=== PATIENT | female | born 1945 | race Caucasian/White ===

== ENCOUNTER 2017-08-27 10:05 | Emergency (ER) | payer MEDICARE, BC ==
--- NOTE | 2017-08-27 11:15 | EDM.PDOC ---
ED HPI GENERAL MEDICAL PROBLEM - General Chief Complaint: Back Pain or Injury Time Seen by Provider: 08/27/17 10:48 Source of Information: Reports: Patient History Limitations: Reports: No Limitations - History of Present Illness INITIAL COMMENTS - FREE TEXT/NARRATIVE: Patient presents with low left back pain that started about 17 hours ago, at 5pm yesterday. It worsened this morning and was also painful in anterior left hip and anterior thigh with a numb feeling below the knee. She denies any known recent injury. She had injections in L5 two years ago that didn't help symptoms at that time. The pain is present with walking or bending at the waist. It was very severe this morning but better right now. 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 Left Leg Pain Score (Numeric/FACES): 5 - Related Data Allergies Allergy/AdvReac Type Severity Reaction Status Date / Time mycophenolate mofetil Allergy Rash Verified 08/27/17 10:14 [From CellCept] Home Meds: Home Meds Mirabegron [Myrbetriq] 25 mg PO DAILY 08/27/17 [History] Omeprazole [Omeprazole] 20 mg PO DAILY 08/27/17 [History] amLODIPine [Norvasc] 5 mg PO DAILY 08/27/17 [History] azaTHIOprine [Imuran] 150 mg PO DAILY 08/27/17 [History] Past Medical History HEENT History: Reports: Cataract, Hard of Hearing, Impaired Vision Cardiovascular History: Reports: Hypertension Respiratory History: Reports: None Gastrointestinal History: Reports: GERD, Hiatal Hernia Genitourinary History: Reports: Urinary Incontinence 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: Musculoskeletal History: Reports: Arthritis, Back Pain, Chronic Neurological History: Reports: None Psychiatric History: Reports: None Endocrine/Metabolic History: Reports: None Hematologic History: Reports: Blood Transfusion(s) Immunologic History: Reports: Solid Organ Transplant Other Immunologic History: liver transplant Oncologic (Cancer) History: Reports: None Dermatologic History: Reports: None - Infectious Disease History Infectious Disease History: Reports: Chicken Pox, Measles, Mumps, Shingles - Past Surgical History HEENT Surgical History: Reports: Adenoidectomy, Cataract Surgery, Myringotomy w Tube(s), Tonsillectomy Cardiovascular Surgical History: Reports: None Respiratory Surgical History: Reports: None GI Surgical History: Reports: Appendectomy, Cholecystectomy, Colonoscopy Female Surgical History: Reports: Hysterectomy, Salpingo-Oophorectomy Endocrine Surgical History: Reports: None Neurological Surgical History: Reports: None Musculoskeletal Surgical History: Reports: Knee Replacement Dermatological Surgical History: Reports: None Social & Family History - Tobacco Use Smoking Status *Q: Former Smoker Used Tobacco, but Quit: Yes Month Tobacco Last Used: 1994 - Caffeine Use Caffeine Use: Reports: Coffee, Tea - Recreational Drug Use Recreational Drug Use: No ED ROS GENERAL - Review of Systems Review Of Systems: See Below Constitutional: Denies: Fever, Chills, Weakness HEENT: Denies: Vertigo, Vision Change Respiratory: Denies: Shortness of Breath, Cough Cardiovascular: Denies: Chest Pain, Lightheadedness, Syncope GI/Abdominal: Denies: Abdominal Pain, Diarrhea, Vomiting : Denies: Dysuria, Flank Pain Musculoskeletal: Denies: Neck Pain, Shoulder Pain, Arm Pain, Back Pain, Hand Pain Skin: Denies: Cyanosis, Jaundice, Mottled, Pallor, Diaphoresis Neurological: Denies: Confusion, Dizziness, Headache, Seizure, Syncope Psychiatric: Denies: Agitation, Anxiety, Confusion ED EXAM,LOWER BACK PAIN/INJURY - Physical Exam Exam: See Below Exam Limited By: No Limitations General Appearance: Alert, WD/WN, No Apparent Distress Eye Exam: Bilateral Eye: EOMI, Normal Inspection, PERRL Ears: Normal External Exam, Hearing Grossly Normal Nose: Normal Inspection, No Blood Throat/Mouth: Normal Lips, Normal Voice, No Airway Compromise Head: Atraumatic, Normocephalic Neck: Normal Inspection, Supple, Full Range of Motion Respiratory/Chest: No Respiratory Distress, Lungs Clear, Normal Breath Sounds, No Accessory Muscle Use Cardiovascular: Regular Rate, Rhythm, No Murmur GI/Abdominal: No Distention Back Exam: Normal Inspection, Full Range of Motion, Other (palpation of left SI region and left upper buttock is tender). No: CVA Tenderness (L), CVA Tenderness (R), Paraspinal Tenderness, Vertebral Tenderness Extremities: Non-Tender, No Pedal Edema, Limited Range of Motion (straight-leg raise is painful on left but normal on right. PROM of left leg is full and painfree at all joints.) Neurological: Alert, Normal Mood/Affect, Normal Dorsiflexion, Normal Plantar Flexion, No Motor/Sensory Deficits (sensation is intact throughout and patient says the numbness is not lack of sensation), Oriented x 3 Psychiatric: Normal Affect, Normal Mood Skin Exam: Warm, Dry, Intact, Normal Color, No Rash Course - Vital Signs Last Recorded V/S: Last Vital Signs Temp 97.9 F 08/27/17 10:09 Pulse 88 08/27/17 10:09 Resp 18 08/27/17 10:09 BP 155/87 H 08/27/17 10:09 Pulse Ox 97 08/27/17 10:09 - Orders/Labs/Meds Orders: Active Orders 24 hr Category Date Time Status Hip Min 2V or 3V Lt [CR] Stat Exams 08/27/17 10:22 Ordered Lumbar Spine 2 or 3V [CR] Stat Exams 08/27/17 10:22 Ordered Pelvis 1V or 2V [CR] Stat Exams 08/27/17 10:22 Ordered - Re-Assessments/Exams Free Text/Narrative Re-Assessment/Exam: 08/27/17 12:26 We are still waiting on xray reports. I see what looks like an old fracture or significant arthritis of L5. Patient is in severe pain when she ambulates but mild pain when supine. Will give toradol as she doesn't have kidney disease or other contraindications for NSAIDS. Will have her follow up with her PCP for chronic management and consideration of lumbar and/or SI injection. 08/27/17 13:04 Her pain is improving following the Toradol. 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 Discussed this with Dr. Salazar who will see her this afternoon in clinic. Patient discharged in stable condition. 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 Go to [facility] this afternoon as scheduled to see Dr. Salazar for evaluation and long-term management of this pain. 2. Return to ER as needed. - My Orders Last 24 Hours: My Active Orders 08/27/17 10:22 Hip Min 2V or 3V Lt [CR] Stat Lumbar Spine 2 or 3V [CR] Stat Pelvis 1V or 2V [CR] Stat - Assessment/Plan Last 24 Hours: My Active Orders 08/27/17 10:22 Hip Min 2V or 3V Lt [CR] Stat Lumbar Spine 2 or 3V [CR] Stat Pelvis 1V or 2V [CR] Stat
[2017-08-27] MEDS ORDERED: Ketorolac 30 MG/ML SDV IM ONE (12:25)
== END 2017-08-27 13:05 | disposition home or self-care (01) ==
LOC: KA.ED 10:05
DX: M47.26 Other spondylosis with radiculopathy, lumbar region (principal); M53.3 Sacrococcygeal disorders, not elsewhere classified; I10 Essential (primary) hypertension; K21.9 Gastro-esophageal reflux disease without esophagitis; Z87.891 Personal history of nicotine dependence; Z88.8 Allergy status to other drugs, medicaments and biological substances; Z79.899 Other long term (current) drug therapy
CPT/HCPCS: 72100; 72170; 73502; 96372; 99283; J1885

== ENCOUNTER 2017-11-01 04:28 | Inpatient (IN) | payer MEDICARE, BC ==
[2017-11-01] MEDS ORDERED: Sodium Chloride 0.9% 5 ML Syringe FLUSH PRN ×2 (04:34→05:23)
--- NOTE | 2017-11-01 04:54 | EDM.PDOC ---
ED HPI GENERAL MEDICAL PROBLEM - General Chief Complaint: Chest Pain Stated Complaint: chest pressure Time Seen by Provider: 11/01/17 04:35 Source of Information: Reports: Patient History Limitations: Reports: No Limitations - History of Present Illness INITIAL COMMENTS - FREE TEXT/NARRATIVE: 72 YO WF presents to ER with episodic chest pain that began 10pm last night. Pt reports she has been having palpitations with associated chest pain that lasts for approximately 5-10 minutes and stopped. Pt when to sleep and chest pressure woke her from sleep. Pt denies any shortness of breath, diaphoresis, nausea/ vomiting or lightheadedness. Pt without any previous episodes of pain. Onset Date: 10/31/17 Onset Time: 22:00 Location: Reports: Chest Quality: Reports: Pressure Severity: Moderate Improves with: Reports: None Worsens with: Reports: None Associated Symptoms: Reports: Chest Pain. Denies: Confusion, Diaphoresis, Fever /Chills, Nausea/Vomiting, Shortness of Breath, Weakness Treatments VP RESPIRATORY: Reports: Aspirin, Nitroglycerin - Related Data Allergies Allergy/AdvReac Type Severity Reaction Status Date / Time mycophenolate mofetil Allergy Rash Verified 11/01/17 04:33 [From CellCept] Home Meds: Home Meds Mirabegron [Myrbetriq] 25 mg PO DAILY 08/27/17 [History] amLODIPine [Norvasc] 5 mg PO DAILY 08/27/17 [History] azaTHIOprine [Imuran] 150 mg PO DAILY 08/27/17 [History] Diclofenac Sodium [IJD: Diclofenac Sodium] 75 mg PO .TWICE DAILY W MEALS [History] Esomeprazole [NexIUM] 20 mg PO DAILY 11/01/17 [History] Past Medical History HEENT History: Reports: Cataract, Hard of Hearing, Impaired Vision Cardiovascular History: Reports: Hypertension Respiratory History: Reports: None Gastrointestinal History: Reports: GERD, Hiatal Hernia Genitourinary History: Reports: Urinary Incontinence 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: Musculoskeletal History: Reports: Arthritis, Back Pain, Chronic Neurological History: Reports: None Psychiatric History: Reports: None Endocrine/Metabolic History: Reports: None Hematologic History: Reports: Blood Transfusion(s) Immunologic History: Reports: Solid Organ Transplant Other Immunologic History: liver transplant Oncologic (Cancer) History: Reports: None Dermatologic History: Reports: None - Infectious Disease History Infectious Disease History: Reports: Chicken Pox, Measles, Mumps, Shingles - Past Surgical History HEENT Surgical History: Reports: Adenoidectomy, Cataract Surgery, Myringotomy w Tube(s), Tonsillectomy Cardiovascular Surgical History: Reports: None Respiratory Surgical History: Reports: None GI Surgical History: Reports: Appendectomy, Cholecystectomy, Colonoscopy Female Surgical History: Reports: Hysterectomy, Salpingo-Oophorectomy Endocrine Surgical History: Reports: None Neurological Surgical History: Reports: None Musculoskeletal Surgical History: Reports: Knee Replacement Dermatological Surgical History: Reports: None Social & Family History - Tobacco Use Smoking Status *Q: Former Smoker Used Tobacco, but Quit: Yes Month Tobacco Last Used: 1994 - Caffeine Use Caffeine Use: Reports: Coffee, Tea - Recreational Drug Use Recreational Drug Use: No ED ROS GENERAL - Review of Systems Review Of Systems: See Below Constitutional: Reports: No Symptoms HEENT: Reports: No Symptoms Respiratory: Reports: No Symptoms Cardiovascular: Reports: Chest Pain. Denies: Blood Pressure Problem, Lightheadedness, Syncope Endocrine: Reports: No Symptoms GI/Abdominal: Reports: No Symptoms : Reports: No Symptoms Musculoskeletal: Reports: No Symptoms Skin: Reports: No Symptoms Neurological: Reports: No Symptoms Psychiatric: Reports: No Symptoms Hematologic/Lymphatic: Reports: No Symptoms Immunologic: Reports: No Symptoms ED EXAM, GENERAL - Physical Exam Exam: See Below Exam Limited By: No Limitations General Appearance: Alert, WD/WN, No Apparent Distress Head: Atraumatic, Normocephalic Neck: Normal Inspection, Supple, Non-Tender, Full Range of Motion Respiratory/Chest: No Respiratory Distress, Lungs Clear, Normal Breath Sounds, No Accessory Muscle Use, Chest Non-Tender Cardiovascular: Normal Peripheral Pulses, Regular Rate, Rhythm, No Edema, No Gallop, No JVD, No Murmur, No Rub, Tachycardia GI/Abdominal: Normal Bowel Sounds, Soft, Non-Tender, No Organomegaly, No Distention, No Abnormal Bruit, No Mass Back Exam: Normal Inspection, Full Range of Motion, NT Extremities: Normal Inspection, Normal Range of Motion, Non-Tender, Normal Capillary Refill, No Pedal Edema Neurological: Alert, Oriented, CN II-XII Intact, Normal Cognition, Normal Gait, Normal Reflexes, No Motor/Sensory Deficits Psychiatric: Normal Affect, Normal Mood Skin Exam: Warm, Dry, Intact, Normal Color, No Rash Lymphatic: No Adenopathy EKG INTERPRETATION EKG Date: 11/01/17 Time: 04:41 Rhythm: NSR Rate (Beats/Min): 135 [place]: Normal P-Wave: Present QRS: Normal ST-T: Normal QT: Normal Comparison: NA - No Prior EKG Course - Orders/Labs/Meds Orders: Active Orders 24 hr Category Date Time Status Patient Status Manage Transfer [TRANSFER] Routine ADT 11/01/17 05:22 Ordered Patient Status [ADT] Routine ADT 11/01/17 05:23 Ordered Bedrest Bathroom Privileges [RC] ASDIRECTED Care 11/01/17 05:23 Active Cardiac Monitoring [RC] . DIRECTED Care 11/01/17 04:34 Active Cardiac Monitoring [RC] CONTINUOUS Care 11/01/17 05:24 Active EKG Documentation Completion [RC] ASDIRECTED Care 11/01/17 04:36 Active Oxygen Therapy [RC] PRN Care 11/01/17 05:23 Active Peripheral IV Care [RC] . DIRECTED Care 11/01/17 05:26 Active Pulse Oximetry [RC] CONTINUOUS Care 11/01/17 04:34 Active Pulse Oximetry [RC] CONTINUOUS Care 11/01/17 05:25 Active VTE/DVT Education [RC] PER UNIT ROUTINE Care 11/01/17 05:23 Active Vital Signs [RC] Q4H Care 11/01/17 05:23 Active 2 Gram Sodium Diet [DIET] Diet 11/01/17 Breakfast Active Chest 1V Frontal [CR] Stat Exams 11/01/17 04:35 Taken MAGNESIUM [CHEM] AM Lab 11/02/17 05:11 Ordered TROPONIN I [CHEM] Timed Lab 11/01/17 12:00 Ordered Diltiazem 125 mg Med 11/01/17 05:15 Active Sodium Chloride 0.9% [Normal Saline] 100 ml IV TITRATE Sodium Chloride 0.9% [Syrex Flush] Med 11/01/17 04:34 Active 5 ml FLUSH Q8HR PRN Sodium Chloride 0.9% [Syrex Flush] Med 11/01/17 05:23 Active 5 ml FLUSH Q8HR PRN Peripheral IV Insertion Adult [OM.PC] Routine Oth 11/01/17 05:23 Ordered Saline Lock Insert [OM.PC] Stat Oth 11/01/17 04:34 Ordered Resuscitation Status Routine Resus Stat 11/01/17 05:23 Ordered Medication Orders Diltiazem HCl 125 mg/ Sodium (Chloride) 125 mls @ 5 mls/hr IV TITRATE EVAN PRN Reason: 5 MG/HR Sodium Chloride (Syrex Flush) 5 ml FLUSH Q8HR PRN PRN Reason: Keep Vein Open Sodium Chloride (Syrex Flush) 5 ml FLUSH Q8HR PRN PRN Reason: Keep Vein Open Labs: Laboratory Tests 11/01/17 11/01/17 11/01/17 Range/Units 04:25 04:25 04:25 WBC 6.2 (5.0-10.0) 10^3/uL RBC 4.36 (3.80-5.50) 10^6/uL Hgb 14.0 (12.0-16.0) g/dL Hct 45.1 (37.0-47.0) % MCV 103.4 H (82.0-92.0) fL MCH 32.0 H (27.0-31.0) pg MCHC 30.9 L (32.0-36.0) g/dL RDW 14.7 H (11.5-14.5) % Plt Count 267 (150-300) 10^3/uL MPV 7.7 (7.4-10.4) fL Neut % (Auto) 58.2 (50.0-70.0) % Lymph % (Auto) 24.8 (20.0-40.0) % [place] % (Auto) 12.1 H (2.0-8.0) % Eos % (Auto) 4.2 H (1.0-3.0) % Baso % (Auto) 0.7 (0.0-1.0) % Neut # (Auto) 3.6 (2.5-7.0) 10^3/uL Lymph # (Auto) 1.5 (1.0-4.0) 10^3/uL [place] # (Auto) 0.8 (0.1-0.8) 10^3/uL Eos # (Auto) 0.3 (0.1-0.3) 10^3/uL Baso # (Auto) 0.0 (0.0-0.1) 10^3/uL PT 9.3 (8.9-11.4) SEC INR 0.9 (0.9-1.1) Sodium 145 (136-145) mmol/L Potassium 4.0 (3.3-5.3) mmol/L Chloride 109 (98-115) mmol/L Carbon Dioxide 23.8 (21.0-32.0) mmol/L BUN 17 (6-25) mg/dL Creatinine 0.60 (0.51-1.17) mg/dL Est Cr Clr Drug Dosing 62.07 mL/min Estimated GFR (MDRD) > 60 mL/min Glucose 106 (70-110) mg/dL Calcium 9.0 (8.7-10.3) mg/dL Total Bilirubin 0.4 (0.2-1.0) mg/dL AST 48 H (15-37) U/L ALT 31 (12-78) U/L Alkaline Phosphatase 213 H (46-116) IU/L Creatine Kinase 96 (26-276) U/L CK-MB (CK-2) 1.80 (0.00-4.30) ng/mL Troponin I < 0.04 (0.00-0.070) ng/mL Total Protein 7.5 (6.4-8.2) g/dL Albumin 3.61 (3.00-4.80) g/dL Meds: Medications Generic Name Dose Route Start Last Admin Trade Name Freq PRN Reason Stop Dose Admin Diltiazem HCl 125 mg/ Sodium 125 mls @ 5 mls/hr 11/01/17 05:15 Chloride IV TITRATE EVAN 5 MG/HR Sodium Chloride 5 ml 11/01/17 04:34 Syrex Flush FLUSH Q8HR PRN Keep Vein Open Sodium Chloride 5 ml 11/01/17 05:23 Syrex Flush FLUSH Q8HR PRN Keep Vein Open Discontinued Medications Generic Name Dose Route Start Last Admin Trade Name Freq PRN Reason Stop Dose Admin Diltiazem HCl 15 mg 11/01/17 05:05 Diltiazem IVPUSH 11/01/17 05:06 ONETIME ONE - Radiology Interpretation Free Text/Narrative:: CXR- NAD - Re-Assessments/Exams Free Text/Narrative Re-Assessment/Exam: 11/01/17 05:11 Pt was given Cardezim 15mg IVP due to HR- 130-160. Pt tolerated medication well and HR currently 80-90's. Cardizem drip at 5mg/hr started. Departure - Departure Time of Disposition: 05:29 Disposition: Admitted As Inpatient 64 Condition: Fair Clinical Impression: Atrial fibrillation Qualifiers: Atrial fibrillation type: persistent Qualified Code(s): I48.1 - Persistent atrial fibrillation Chest pain Qualifiers: Chest pain type: unspecified Qualified Code(s): R07.9 - Chest pain, unspecified Referrals: Antonina Harrell, SHEET ROLLER OPERATOR [Primary Care Provider] - Forms: ED Department Discharge - My Orders Last 24 Hours: My Active Orders 11/01/17 04:34 Cardiac Monitoring [RC] . DIRECTED Pulse Oximetry [RC] CONTINUOUS Sodium Chloride 0.9% [Syrex Flush] 5 ml FLUSH Q8HR PRN Saline Lock Insert [OM.PC] Stat 11/01/17 04:35 Chest 1V Frontal [CR] Stat 11/01/17 04:36 EKG Documentation Completion [RC] ASDIRECTED 11/01/17 05:15 Diltiazem 125 mg Sodium Chloride 0.9% [Normal Saline] 100 ml IV TITRATE 11/01/17 05:22 Patient Status Manage Transfer [TRANSFER] Routine 11/01/17 05:23 Patient Status [ADT] Routine Bedrest Bathroom Privileges [RC] ASDIRECTED Oxygen Therapy [RC] PRN VTE/DVT Education [RC] PER UNIT ROUTINE Vital Signs [RC] Q4H Sodium Chloride 0.9% [Syrex Flush] 5 ml FLUSH Q8HR PRN Peripheral IV Insertion Adult [OM.PC] Routine Resuscitation Status Routine 11/01/17 05:24 Cardiac Monitoring [RC] CONTINUOUS 11/01/17 05:25 Pulse Oximetry [RC] CONTINUOUS 11/01/17 05:26 Peripheral IV Care [RC] . DIRECTED 11/01/17 12:00 TROPONIN I [CHEM] Timed 11/01/17 Breakfast 2 Gram Sodium Diet [DIET] 11/02/17 05:11 MAGNESIUM [CHEM] AM - Assessment/Plan Last 24 Hours: My Active Orders 11/01/17 04:34 Cardiac Monitoring [RC] . DIRECTED Pulse Oximetry [RC] CONTINUOUS Sodium Chloride 0.9% [Syrex Flush] 5 ml FLUSH Q8HR PRN Saline Lock Insert [OM.PC] Stat 11/01/17 04:35 Chest 1V Frontal [CR] Stat 11/01/17 04:36 EKG Documentation Completion [RC] ASDIRECTED 11/01/17 05:15 Diltiazem 125 mg Sodium Chloride 0.9% [Normal Saline] 100 ml IV TITRATE 11/01/17 05:22 Patient Status Manage Transfer [TRANSFER] Routine 11/01/17 05:23 Patient Status [ADT] Routine Bedrest Bathroom Privileges [RC] ASDIRECTED Oxygen Therapy [RC] PRN VTE/DVT Education [RC] PER UNIT ROUTINE Vital Signs [RC] Q4H Sodium Chloride 0.9% [Syrex Flush] 5 ml FLUSH Q8HR PRN Peripheral IV Insertion Adult [OM.PC] Routine Resuscitation Status Routine 11/01/17 05:24 Cardiac Monitoring [RC] CONTINUOUS 11/01/17 05:25 Pulse Oximetry [RC] CONTINUOUS 11/01/17 05:26 Peripheral IV Care [RC] . DIRECTED 11/01/17 12:00 TROPONIN I [CHEM] Timed 11/01/17 Breakfast 2 Gram Sodium Diet [DIET] 11/02/17 05:11 MAGNESIUM [CHEM] AM
[2017-11-01] MEDS ORDERED: Diltiazem 25 MG/5 ML SDV IVPUSH ONE (05:05)
[2017-11-01] MEDS ORDERED: Diltiazem 125 MG in Sodium Chloride 0.9% 100 ML IV SCH (05:15)
[2017-11-01 05:21] LABS: CHLORIDE,CL 109 mmol/L (98-115); SODIUM,NA 145 mmol/L (136-145)
[2017-11-01] MEDS ORDERED: Sodium Chloride 0.9% 100 ML IV SCH (05:25)
[2017-11-01] MEDS: Enoxaparin 60 MG/0.6 ML Syringe SUBCUT SCH ×2 (06:09→08:46)
[2017-11-01] MEDS ORDERED: Acetaminophen 325 MG Tab PO PRN (07:57)
[2017-11-01] MEDS ORDERED: Atropine 0.1 MG/ML 10 ML Syringe IVPUSH PRN (08:40)
[2017-11-01] MEDS ORDERED: Lidocaine 2% 100 MG/5 ML Syringe IVPUSH PRN (08:40)
[2017-11-01] MEDS ORDERED: EPINEPHrine 1:10,000 1 MG/10 ML Syringe IVPUSH PRN (08:40)
[2017-11-01] MEDS ORDERED: Nitroglycerin 0.4 MG Tab.SL SL PRN (08:40)
--- NOTE | 2017-11-01 09:15 | PCM.HP ---
H&P History of Present Illness - General Date of Service: 11/01/17 Source of Information: Patient, Old Records, Provider, RN - History of Present Illness Initial Comments - Free Text/Narative: This very pleasant and active outgoing 72-year-old female was admitted through the ED due to tachycardia. Patient stated she was sitting at home in her chair about 2200 last night when she noticed she started having a fast heart rate, she stated it lasted approximately 45 minutes, then she went to bed she felt fine then about 300 this morning she woke up due to fast heart rate, waited about a half hour still had fast heart rate so she notified EMS. She also felt heavy in her chest and some slight pain radiating into her back. She had no shortness of breath, nausea, vomiting or diarrhea or lightheadedness, she states she took her blood pressure during this timeframe and it was 145/89. She does not have a history of heart disease other than hypertension. Her only complaint today is some mild numbness in her left lower extremity in which she states she was evaluated in the past and was told she was vitamin B12 deficient. She denies claudication. Her initial presentation the ED showed SVT HR 130-160, Was given Cardezim 15mg IVP, and converted briefly to atrial fibrillation, then before Cardizem drip was started patient converted to sinus rhythm. Patient is on DMARD therapy d/t liver transplant 25 years ago. Risk factor for A. fib includes hypertension. 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 Chest Pain Score (Numeric/FACES): 4 - Related Data Allergies/Adverse Reactions: Allergies Allergy/AdvReac Type Severity Reaction Status Date / Time mycophenolate mofetil Allergy Rash Verified 11/01/17 04:33 [From CellCept] Home Medications: Home Meds Mirabegron [Myrbetriq] 25 mg PO DAILY 08/27/17 [History] amLODIPine [Norvasc] 5 mg PO DAILY 08/27/17 [History] azaTHIOprine [Imuran] 150 mg PO DAILY 08/27/17 [History] Diclofenac Sodium [IJD: Diclofenac Sodium] 75 mg PO .TWICE DAILY W MEALS [History] Omeprazole 20 mg PO ACBREAKFAST 11/01/17 [History] Past Medical History HEENT History: Reports: Cataract, Hard of Hearing, Impaired Vision Cardiovascular History: Reports: Afib, Hypertension, Other (See Below) Other Cardiovascular History: new onset of a-fib Respiratory History: Reports: None Gastrointestinal History: Reports: GERD, Hiatal Hernia Genitourinary History: Reports: Urinary Incontinence [employer] History: Reports: Musculoskeletal History: Reports: Arthritis, Back Pain, Chronic Neurological History: Reports: None, Other (See Below) Other Neuro History: numbness to L calf and ankle Psychiatric History: Reports: None Endocrine/Metabolic History: Reports: None Hematologic History: Reports: B12 Deficiency, Blood Transfusion(s), Other (See Below) Other Hematologic History: new dx for B 12 deficiency Immunologic History: Reports: Solid Organ Transplant Other Immunologic History: liver transplant Oncologic (Cancer) History: Reports: None Dermatologic History: Reports: None - Infectious Disease History Infectious Disease History: Reports: Chicken Pox, Measles, Mumps, Shingles - Past Surgical History HEENT Surgical History: Reports: Adenoidectomy, Cataract Surgery, Myringotomy w Tube(s), Tonsillectomy Cardiovascular Surgical History: Reports: None Respiratory Surgical History: Reports: None GI Surgical History: Reports: Appendectomy, Cholecystectomy, Colonoscopy, Other (See Below) Other GI Surgeries/Procedures: liver transplant Female Surgical History: Reports: Hysterectomy, Salpingo-Oophorectomy Endocrine Surgical History: Reports: None Neurological Surgical History: Reports: None Musculoskeletal Surgical History: Reports: Knee Replacement Dermatological Surgical History: Reports: None Social & Family History - Family History HEENT: Reports: None Cardiac: Reports: None, Hypertension (Mother hypertension) Respiratory: Reports: None GI: Reports: None : Reports: None OBGYN: Reports: None Musculoskeletal: Reports: None Neurological: Reports: None Psychiatric: Reports: None Endocrine/Metabolic: Reports: None Hematologic: Reports: None Immunologic: Reports: None Dermatologic: Reports: None Oncologic: Reports: None - Tobacco Use Smoking Status *Q: Former Smoker Used Tobacco, but Quit: Yes Month Tobacco Last Used: 1994 - Caffeine Use Caffeine Use: Reports: Coffee, Tea - Recreational Drug Use Recreational Drug Use: No H&P Review of Systems - Review of Systems: Review Of Systems: See Below General: Reports: No Symptoms HEENT: Reports: Headaches Pulmonary: Reports: No Symptoms Cardiovascular: Reports: No Symptoms Gastrointestinal: Reports: No Symptoms Genitourinary: Reports: No Symptoms Musculoskeletal: Reports: Muscle Pain Skin: Reports: Dryness Psychiatric: Reports: No Symptoms Neurological: Reports: Pre-Existing Deficit, Other (tingling in feet upon walking-chronic. ) Immunologic: Reports: Other (liver transplant 20 years ago. ) Exam - Exam Exam: See Below - Vital Signs Vital Signs: Last Vital Signs Temp 98.8 F 11/01/17 05:25 Pulse 76 11/01/17 05:25 Resp 18 11/01/17 05:25 BP 115/79 11/01/17 05:25 Pulse Ox 97 11/01/17 06:10 Weight: 140 lb - Exam General: Alert, Oriented, 4 HEENT: PERRLA, Hearing Intact, Mucosa Moist & [place], Nares Patent, Normal Nasal Septum, Posterior Pharynx Clear, Conjunctiva Clear, EOMI, EACs Clear, TMs Clear Neck: Supple, Trachea Midline, 2 Lungs: Clear to Auscultation, Normal Respiratory Effort Cardiovascular: Regular Rate, Regular Rhythm, Normal S1, Normal S2 GI/Abdominal Exam: Normal Bowel Sounds, Soft, Non-Tender, No Organomegaly, No Distention, No Abnormal Bruit, No Mass, Pelvis Stable (Female) Exam: Deferred Extremities: No Pedal Edema Peripheral Pulses: 2+: Radial (L), Radial (R) Skin: Warm, Dry, Intact Neurological: Cranial Nerves Intact, Reflexes Equal Bilateral Neuro Extensive - Mental Status: Alert, Oriented x3, Normal Mood/Affect, Normal Cognition Neuro Extensive - Motor, Sensory, Reflexes: CN II-XII Intact, Normal Gait, Normal Reflexes Psychiatric: Alert, Normal Affect, Normal Mood - Patient Data Result Diagrams: 11/01/17 04:25 11/01/17 04:25 EKG INTERPRETATION Rhythm: NSR [place]: Normal P-Wave: Present QRS: Normal *Q Meaningful Use (ADM) - VTE *Q VTE Criteria *Q: - Stroke *Q Stroke Criteria *Q: - AMI *Q AMI Criteria *Q: Problem List Initiated/Reviewed/Updated: Yes Orders Last 24hrs: Active Orders 24 hr Category Date Time Status T3 UPTAKE [REF] Stat Lab 11/01/17 04:25 Received Acetaminophen [Tylenol] Med 11/01/17 07:57 Active 325 - 650 mg PO Q4H PRN Atropine [Atropine 0.1 MG/ML] Med 11/01/17 08:40 Active 0 mg IVPUSH ASDIRECTED PRN EPINEPHrine [EPINEPHrine 1:10,000] Med 11/01/17 08:40 Active 1 mg IVPUSH ASDIRECTED PRN Enoxaparin [Lovenox] Med 11/01/17 05:45 Active 60 mg SUBCUT DAILY Lidocaine 2% [Xylocaine 2%] Med 11/01/17 08:40 Active 0 mg IVPUSH ASDIRECTED PRN Nitroglycerin [Nitrostat] Med 11/01/17 08:40 Active 0.4 mg SL ASDIRECTED PRN Sodium Chloride 0.9% [Normal Saline] 100 ml Med 11/01/17 05:25 Active IV ASDIRECTED Medication Orders Acetaminophen (Tylenol) 325 - 650 mg PO Q4H PRN PRN Reason: Pain Atropine Sulfate (Atropine 0.1 Mg/Ml) 0 mg IVPUSH ASDIRECTED PRN PRN Reason: Heart Enoxaparin Sodium (Lovenox) 60 mg SUBCUT DAILY [facility] Last Admin: 11/01/17 08:46 Dose: Not Given Admin: 11/01/17 06:09 Dose: 60 mg Epinephrine HCl (Epinephrine 1:10,000) 1 mg IVPUSH ASDIRECTED PRN PRN Reason: Heart Sodium Chloride (Normal Saline) 100 mls @ 25 mls/hr IV ASDIRECTED EVAN Lidocaine HCl (Xylocaine 2%) 0 mg IVPUSH ASDIRECTED PRN PRN Reason: Heart Nitroglycerin (Nitrostat) 0.4 mg SL ASDIRECTED PRN PRN Reason: Heart Sodium Chloride (Syrex Flush) 5 ml FLUSH Q8HR PRN PRN Reason: Keep Vein Open Last Admin: 11/01/17 05:05 Dose: 5 ml Assessment/Plan Comment:: HISTORY OF PRESENT ILLNESS This very pleasant and active outgoing 72-year-old female was admitted through the ED due to tachycardia. Patient stated she was sitting at home in her chair about 2200 last night when she noticed she started having a fast heart rate, she stated it lasted approximately 45 minutes, then she went to bed she felt fine then about 300 this morning she woke up due to fast heart rate, waited about a half hour still had fast heart rate so she notified EMS. She also felt heavy in her chest and some slight pain radiating into her back. She had no shortness of breath, nausea, vomiting or diarrhea or lightheadedness, she states she took her blood pressure during this timeframe and it was 145/89. She does not have a history of heart disease other than hypertension. Her only complaint today is some mild numbness in her left lower extremity in which she states she was evaluated in the past and was told she was vitamin B12 deficient. She denies claudication. Her initial presentation the ED showed SVT HR 130-160, Was given Cardezim 15mg IVP, and converted briefly to atrial fibrillation, then before Cardizem drip was started patient converted to sinus rhythm. Patient is on DMARD therapy d/t liver transplant 25 years ago. Risk factor for A. fib includes hypertension. 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 Pertinent ED workup Initial SVT, Cardizem push, with rate slower A-fib presented, then into NSR rate 80 Electrolytes, normal PT/INR normal Troponin, normal TSH, within normal range CODE STATUS, DO NOT RESUSCITATE Upon transferring to the floor patient needed further workup including medications for further rate control, EKG/overnight telemetry strip interpretation medication adjustments, medication reconciliation, further anticoagulation PRIMARY IMPRESSION --Paroxysmal atrial fibrillation, Now in NSR rate 80, long discussion regarding likely rate control strategy may be best at this time, [id number] score high 4 (considering patient's soon to be 73 years old), Eliquis 5mg PO BID, (CHILD WHITEHEAD class A) add metoprolol tartrate 12.5 mg by mouth twice a day, HOLD CCB, discussion with patient regarding risks versus benefit, to include major bleeding, irreversibility. She does desire NOVA over coumadin as long as her insurance plan can cover. Will send prescription, pharmacology consultation. SECONDARY IMPRESSION --Hypertension, removed amlodipine, add metoprolol --Bilateral extremity numbness, previous workup included arterial duplex ultrasound, with minimal atherosclerotic changes both common femoral arteries, but no focal stenosis or vessel occlusion. --Vitamin B12 deficiency, normal levels end of normal at 316. Further workup as outpatient --Immunocompromised d/t history of liver transplant. Continue DMARD therapy. CHILD WHITEHEAD class A --Osteoporosis --Urinary incontinence, stable, on Mirbetriq --Chronic low back pain, lumbar stenosis with sacroiliac pathology, on NSAIDs, change to Tylenol and starting anticoagulation reduced dosage due to liver transplant Overall plan, disposition, discharge planning, will keep acute today, telemetry , further anticoagulation with Eliquis hopeful, if not will need bridge therapy , STOP NSAIDs, add Tylenol (since liver transplant limit dosing), hold calcium channel isatu, add beta isatu. Monitor heart rate, ambulate in halls, likely discharge tomorrow.
[2017-11-01] MEDS: Metoprolol Tartrate 25 MG Tab PO SCH ×2 (10:07→20:54)
[2017-11-01] MEDS ORDERED: AZATHIOPRINE 150 MG PO SCH (13:00)
[2017-11-01] MEDS ORDERED: Simethicone 80 MG Tab.Chew PO PRN (16:56)
[2017-11-01] MEDS: Apixaban 5 MG Tab PO SCH (20:52)
[2017-11-02] MEDS: Apixaban 5 MG Tab PO SCH (08:10)
[2017-11-02] MEDS: Metoprolol Tartrate 25 MG Tab PO SCH (08:10)
[2017-11-02] MEDS ORDERED: Non-Formulary Medication 1 Each (Mirabegron 25 MG) PO SCH (09:00)
[2017-11-02] MEDS ORDERED: Omeprazole 20 MG Cap.CR PO SCH (11:30)
--- NOTE | 2017-11-05 10:05 | DISCH ---
FINAL DIAGNOSES: 1. Paroxysmal atrial fibrillation, now in sinus rhythm, rate control strategy. CHADS2-VASc score high of 4 (considering patient soon to be 73 years old). New anticoagulation, Eliquis (Child-Gunderson class A). 2. Hypertension. Removed amlodipine. Major risk for atrial fibrillation. 3. Bilateral extremity numbness. Previous workup included minimal atherosclerotic changes. Likely will need further workup. 4. Immunocompromised due to history of liver transplant. She is on DMARD therapy. Child-Gunderson class A. 5. Osteoporosis. 6. Urinary incontinence. 7. Chronic low back pain with lumbar stenosis and sacroiliac pathology, removed NSAID due to factor Xa inhibitor. 8. Vitamin B12 deficiency. HISTORY: This very pleasant and outgoing 72-year-old female was admitted through the emergency room due to tachycardia. She was sitting at home in a chair about 2200 hours the night of admission, when she noted she was having a fast heart rate. This lasted about 45 minute. She went to bed, felt fine. About 3 o'clock that morning, she was woken up again, likely due to fast heart rate. She waited about half hour, still had fast heart rate, notified EMS. She felt heavy in her chest, some slight pain radiating into her back. Denies any shortness of breath, nausea, vomiting, or diarrhea or lightheadedness. She took her blood pressure at that timeframe, it was 145/89. No history of heart disease other than hypertension. There is no echo on file. Her only complaint upon admission other than fast heart was mild numbness in her left lower extremity, which she states she was evaluated in the past. She was told she had vitamin B12 deficiency. She denied any claudication. Her initial presentation to the ED showed SVT, heart rate 130-160. She was given Cardizem 15 mg IV push, slow to rate down enough to exert a baseline property of atrial fibrillation; however, then she converted shortly thereafter prior to a Cardizem drip to a sinus rhythm. The patient is on DMARD therapy due to liver transplant 25 years ago. Most recent EKG in 2012 showed normal sinus rhythm and old septal infarct. PERTINENT ED WORKUP: 1. Initial SVT, Cardizem push, slow rate of atrial fibrillation noted, then converted into normal sinus rhythm, rate of 80. She continued in normal sinus rhythm throughout her hospital stay. 2. Her electrolytes were normal. 3. PT, INR normal. 4. Troponin was normal. 5. TSH was within normal limits. CODE STATUS: The patient is a DNR. HOSPITAL COURSE: It went well. She remained on telemetry. She continued in normal sinus rhythm. Metoprolol tartrate low dose 12.5 mg p.o. b.i.d. was started. BARBIE was started with factor Xa inhibitor of Eliquis 5 mg p.o. b.i.d. All the risks and benefits were discussed with her; however, she may hit donut hole soon with this medication, so as long as we continue with rate control strategy, she may have to be switched to a cheaper warfarin. However, she will continue with Eliquis until the time being. CHADS2-VASc score high of 4. Considering the patient is soon to be 73 years old, I held the calcium channel isatu and discontinue that on discharge since adding metoprolol. She never became hemodynamically unstable. LABORATORY DATA: White count 6.2, hemoglobin 14.0, hematocrit 45.1. She does have a slightly elevated RDW consistent with anisocytosis. PT is 9.3, INR 0.9. Sodium, potassium, BUN and creatinine are normal. Estimated drug clearance 62. AST 48, expected due to history of liver transplant. Alkaline phosphatase 213. Troponin x3 was normal. BNP 189. No echo on file. Total protein 7.5, albumin 3.61. TSH 2.010. PHYSICAL EXAM ON DISCHARGE: VITAL SIGNS: On discharge, heart rate normal sinus rhythm at 70, blood pressure 129/78, O2 sats 96% on room air. ORIENTATION: Alert and oriented. LUNGS: Clear to auscultation. CV: Regular rate and rhythm. No pedal edema. DISCHARGE MEDICATIONS: 1. Eliquis 5 mg p.o. b.i.d. (newly added, script sent, coupon given for 30 days free, sent in mail). 2. Metoprolol tartrate 12.5 mg p.o. b.i.d. (newly added). 3. Discontinue diclofenac since on factor Xa inhibitor. 4. Discontinue amlodipine since adding metoprolol tartrate. 5. Continue with DMARD therapy. 6. Tylenol no more than 3000 mg per day due to history of liver transplant. DISPOSITION: Patient will be discharged from the hospital. She can follow up with provider of her choice. RECOMMENDATIONS AT FOLLOWUP: Echocardiogram, consider rate control strategy versus rhythm control strategy. Likely, the patient will not benefit from rhythm control strategy. Continue with anticoagulation. Depending on cost, may have to switch to Coumadin. Risks and benefits were explained to the patient. The patient is to report any shortness of breath, dizziness, chest pain, lightheadedness or any signs and symptoms of bleeding. /[id number]/MODL
== END 2017-11-02 11:10 | disposition home or self-care (01) | DRG 309 ==
LOC: KA.ED 04:28 → UNDOADMIN 05:30 → KA.MS 05:30
PROVIDERS: ADMIT Physician Assistant Medical; ATTEND Family Medicine
DX: R07.9 Chest pain, unspecified (principal); I48.1 Persistent atrial fibrillation; I48.0 Paroxysmal atrial fibrillation; Z94.4 Liver transplant status; K21.9 Gastro-esophageal reflux disease without esophagitis; I10 Essential (primary) hypertension; R20.0 Anesthesia of skin; M81.0 Age-related osteoporosis without current pathological fracture; R32 Unspecified urinary incontinence; M54.5 Low back pain; G89.29 Other chronic pain; M48.061 Spinal stenosis, lumbar region without neurogenic claudication; E53.8 Deficiency of other specified B group vitamins; Z88.8 Allergy status to other drugs, medicaments and biological substances; Z79.899 Other long term (current) drug therapy; Z87.891 Personal history of nicotine dependence
CPT/HCPCS: 36415; 71045; 80053; 82550; 82553; 83880; 84439; 84443; 84479; 84484; 85025; 85610; 93005 ×2; 96374; 99285 ×2; J3490; 83735; A9270-GY; J1650; J7500

== ENCOUNTER 2017-12-27 20:08 | Inpatient (IN) | payer MEDICARE, BC ==
[2017-12-27] MEDS ORDERED: Sodium Chloride 0.9% 5 ML Syringe FLUSH PRN ×2 (20:25→21:25)
[2017-12-27] MEDS ORDERED: Diltiazem 25 MG/5 ML SDV IVPUSH ONE (20:46)
--- NOTE | 2017-12-27 20:49 | EDM.PDOC ---
ED HPI GENERAL MEDICAL PROBLEM - General Chief Complaint: Chest Pain Stated Complaint: Palpitations Time Seen by Provider: 12/27/17 20:30 Source of Information: Reports: Patient History Limitations: Reports: No Limitations - History of Present Illness INITIAL COMMENTS - FREE TEXT/NARRATIVE: 72 YO WF presents to ER complaing of 1 day of palpitations with associated chest pressure and shortness of breath. Pt was seen in ER 2 months ago with similar complaints and diagnosed with new onset Atrial fibrillation. Pt converted back to NSR during hospitalization and was discharged on lopressor 12.5mg BID and eliquis. Pt reports compliance with her home medications. Onset: Today Onset Date: 12/27/17 Onset Time: 15:30 Location: Reports: Chest Quality: Reports: Pressure Severity: Mild Improves with: Reports: None Worsens with: Reports: Movement Associated Symptoms: Reports: Chest Pain, Shortness of Breath. Denies: Cough, Diaphoresis, Fever/Chills, Nausea/Vomiting, Syncope - Related Data Allergies Allergy/AdvReac Type Severity Reaction Status Date / Time mycophenolate mofetil Allergy Rash Verified 12/27/17 20:11 [From CellCept] Home Meds: Home Meds azaTHIOprine [Imuran] 150 mg PO DAILY 08/27/17 [History] Omeprazole 20 mg PO ACBREAKFAST 11/01/17 [History] Apixaban [Eliquis] 5 mg PO BID #0 tablet 11/02/17 [Rx] Metoprolol Tartrate [Lopressor] 12.5 mg PO BID #60 tablet 11/02/17 [Rx] Past Medical History HEENT History: Reports: Cataract, Hard of Hearing, Impaired Vision Cardiovascular History: Reports: Afib, Hypertension, Other (See Below) Other Cardiovascular History: new onset of a-fib Respiratory History: Reports: None Gastrointestinal History: Reports: GERD, Hiatal Hernia Genitourinary History: Reports: Urinary Incontinence SYNTHETIC SOIL BLOCKS 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 History: Reports: Musculoskeletal History: Reports: Arthritis, Back Pain, Chronic Neurological History: Reports: None, Other (See Below) Other Neuro History: numbness to L calf and ankle Psychiatric History: Reports: None Endocrine/Metabolic History: Reports: None Hematologic History: Reports: B12 Deficiency, Blood Transfusion(s), Other (See Below) Other Hematologic History: new dx for B 12 deficiency Immunologic History: Reports: Solid Organ Transplant Other Immunologic History: liver transplant Oncologic (Cancer) History: Reports: None Dermatologic History: Reports: None - Infectious Disease History Infectious Disease History: Reports: Chicken Pox, Measles, Mumps, Shingles - Past Surgical History HEENT Surgical History: Reports: Adenoidectomy, Cataract Surgery, Myringotomy w Tube(s), Tonsillectomy Cardiovascular Surgical History: Reports: None Respiratory Surgical History: Reports: None GI Surgical History: Reports: Appendectomy, Cholecystectomy, Colonoscopy, Other (See Below) Other GI Surgeries/Procedures: liver transplant Female Surgical History: Reports: Hysterectomy, Salpingo-Oophorectomy Endocrine Surgical History: Reports: None Neurological Surgical History: Reports: None Musculoskeletal Surgical History: Reports: Knee Replacement Dermatological Surgical History: Reports: None Social & Family History - Family History HEENT: Reports: None Cardiac: Reports: None, Hypertension (Mother hypertension) Respiratory: Reports: None GI: Reports: None : Reports: None OBGYN: Reports: None Musculoskeletal: Reports: None Neurological: Reports: None Psychiatric: Reports: None Endocrine/Metabolic: Reports: None Hematologic: Reports: None Immunologic: Reports: None Dermatologic: Reports: None Oncologic: Reports: None - Tobacco Use Smoking Status *Q: Former Smoker Used Tobacco, but Quit: Yes Month/Year Tobacco Last Used: 1994 - Caffeine Use Caffeine Use: Reports: Coffee, Tea - Recreational Drug Use Recreational Drug Use: No ED ROS GENERAL - Review of Systems Review Of Systems: See Below Constitutional: Reports: No Symptoms HEENT: Reports: No Symptoms Respiratory: Reports: Shortness of Breath Cardiovascular: Reports: Chest Pain, Palpitations Endocrine: Reports: No Symptoms GI/Abdominal: Reports: No Symptoms : Reports: No Symptoms Musculoskeletal: Reports: No Symptoms Skin: Reports: No Symptoms Neurological: Reports: No Symptoms Psychiatric: Reports: No Symptoms Hematologic/Lymphatic: Reports: No Symptoms Immunologic: Reports: No Symptoms ED EXAM, GENERAL - Physical Exam Exam: See Below Exam Limited By: No Limitations General Appearance: Alert, WD/WN, No Apparent Distress Throat/Mouth: Normal Inspection, Normal Lips, Normal Teeth, Normal Gums, Normal Oropharynx, Normal Voice, No Airway Compromise Head: Atraumatic, Normocephalic Neck: Normal Inspection, Supple, Non-Tender, Full Range of Motion Respiratory/Chest: No Respiratory Distress, Lungs Clear, Normal Breath Sounds, No Accessory Muscle Use, Chest Non-Tender Cardiovascular: Normal Peripheral Pulses, No Edema, No Gallop, No JVD, No Murmur , No Rub, Tachycardia, Irregularly Irregular GI/Abdominal: Normal Bowel Sounds, Soft, Non-Tender, No Organomegaly, No Distention, No Abnormal Bruit, No Mass Back Exam: Normal Inspection, Full Range of Motion, NT Extremities: Normal Inspection, Normal Range of Motion, Non-Tender, Normal Capillary Refill, No Pedal Edema Neurological: Alert, Oriented, CN II-XII Intact, Normal Cognition, Normal Gait, Normal Reflexes, No Motor/Sensory Deficits Psychiatric: Normal Affect, Normal Mood Skin Exam: Warm, Dry, Intact, Normal Color, No Rash Lymphatic: No Adenopathy EKG INTERPRETATION EKG Date: 12/27/17 Time: 20:18 Rhythm: A-Fib Rate (Beats/Min): 143 [place]: Normal P-Wave: Absent QRS: Normal ST-T: Normal QT: Normal Course - Vital Signs Last Recorded V/S: Last Vital Signs Temp 36.5 C 12/27/17 20:10 Pulse 75 12/27/17 21:21 Resp 96 H 12/27/17 21:21 BP 128/72 12/27/17 21:21 Pulse Ox 96 12/27/17 21:07 - Orders/Labs/Meds Orders: Active Orders 24 hr Category Date Time Status EKG Documentation Completion [RC] ASDIRECTED Care 12/27/17 20:27 Active Peripheral IV Care [RC] . DIRECTED Care 12/27/17 20:27 Active Chest 2V [CR] Stat Exams 12/27/17 20:27 Ordered Sodium Chloride 0.9% [Syrex Flush] Med 12/27/17 20:25 Active 5 ml FLUSH Q8HR PRN Peripheral IV Insertion Adult [OM.PC] Stat Oth 12/27/17 20:25 Ordered EKG 12 Lead [EK] Stat Ther 12/27/17 20:25 Ordered Medication Orders Sodium Chloride (Syrex Flush) 5 ml FLUSH Q8HR PRN PRN Reason: Keep Vein Open Last Admin: 12/27/17 20:51 Dose: 5 ml Labs: Laboratory Tests 12/27/17 12/27/17 12/27/17 Range/Units 20:40 20:40 20:40 WBC 7.2 (5.0-10.0) 10^3/uL RBC 4.71 (3.80-5.50) 10^6/uL Hgb 15.7 D (12.0-16.0) g/dL Hct 47.0 (37.0-47.0) % MCV 99.7 H D (82.0-92.0) fL MCH 33.4 H (27.0-31.0) pg MCHC 33.5 (32.0-36.0) g/dL RDW 14.0 (11.5-14.5) % Plt Count 223 (150-300) 10^3/uL MPV 7.2 L (7.4-10.4) fL Neut % (Auto) 66.4 (50.0-70.0) % Lymph % (Auto) 21.5 (20.0-40.0) % [place] % (Auto) 8.0 (2.0-8.0) % Eos % (Auto) 2.0 (1.0-3.0) % Baso % (Auto) 2.1 H (0.0-1.0) % Neut # (Auto) 4.8 (2.5-7.0) 10^3/uL Lymph # (Auto) 1.5 (1.0-4.0) 10^3/uL [place] # (Auto) 0.6 (0.1-0.8) 10^3/uL Eos # (Auto) 0.1 (0.1-0.3) 10^3/uL Baso # (Auto) 0.2 H (0.0-0.1) 10^3/uL PT 10.8 (8.9-11.4) SEC INR 1.1 (0.9-1.1) Sodium 146 H (136-145) mmol/L Potassium 4.5 (3.3-5.3) mmol/L Chloride 110 (98-115) mmol/L Carbon Dioxide 24.8 (21.0-32.0) mmol/L BUN 19 (6-25) mg/dL Creatinine 0.75 (0.51-1.17) mg/dL Est Cr Clr Drug Dosing 54.44 mL/min Estimated GFR (MDRD) > 60 mL/min Glucose 127 H (70-110) mg/dL Calcium 9.4 (8.7-10.3) mg/dL Creatine Kinase 65 (26-276) U/L CK-MB (CK-2) 1.20 (0.00-4.30) ng/mL Troponin I < 0.04 (0.00-0.070) ng/mL B-Natriuretic Peptide 242 H (0-100) pg/mL Meds: Medications Generic Name Dose Route Start Last Admin Trade Name Freq PRN Reason Stop Dose Admin Sodium Chloride 5 ml 12/27/17 20:25 12/27/17 20:51 Syrex Flush FLUSH 5 ml Q8HR PRN Administration Keep Vein Open Discontinued Medications Generic Name Dose Route Start Last Admin Trade Name Freq PRN Reason Stop Dose Admin Diltiazem HCl 15 mg 12/27/17 20:46 12/27/17 20:49 Diltiazem IVPUSH 12/27/17 20:47 15 mg ONETIME ONE Administration - Radiology Interpretation Free Text/Narrative:: CXR- NAD Departure - Departure Time of Disposition: 21:22 Disposition: Admitted As Inpatient 64 Condition: Fair Clinical Impression: Atrial fibrillation Qualifiers: Atrial fibrillation type: paroxysmal Qualified Code(s): I48.0 - Paroxysmal atrial fibrillation Referrals: Yamilex Dai PA-C [Primary Care Provider] - Forms: ED Department Discharge - My Orders Last 24 Hours: My Active Orders 12/27/17 20:25 Sodium Chloride 0.9% [Syrex Flush] 5 ml FLUSH Q8HR PRN Peripheral IV Insertion Adult [OM.PC] Stat EKG 12 Lead [EK] Stat 12/27/17 20:27 EKG Documentation Completion [RC] ASDIRECTED Peripheral IV Care [RC] . DIRECTED Chest 2V [CR] Stat - Assessment/Plan Last 24 Hours: My Active Orders 12/27/17 20:25 Sodium Chloride 0.9% [Syrex Flush] 5 ml FLUSH Q8HR PRN Peripheral IV Insertion Adult [OM.PC] Stat EKG 12 Lead [EK] Stat 12/27/17 20:27 EKG Documentation Completion [RC] ASDIRECTED Peripheral IV Care [RC] . DIRECTED Chest 2V [CR] Stat Assessment:: 1. Atrial Fibrillation with RVR Plan: 1. Admit for Atrial Fibrillation- Yamilex Dai 2. trop I Q6 3. Cardizem 5mg IV Gtt 4. supportive care
[2017-12-27 21:13] LABS: CHLORIDE,CL 110 mmol/L (98-115); SODIUM,NA 146 mmol/L (136-145)
[2017-12-27] MEDS ORDERED: Diltiazem 125 MG in Sodium Chloride 0.9% 100 ML IV SCH (22:00)
[2017-12-27] MEDS ORDERED: Diltiazem 25 MG/5 ML SDV ONE (22:09)
[2017-12-27] MEDS: Apixaban 5 MG Tab PO SCH (22:12)
[2017-12-28] MEDS ORDERED: Atropine 0.1 MG/ML 10 ML Syringe IVPUSH PRN (06:13)
[2017-12-28] MEDS ORDERED: Nitroglycerin 0.4 MG Tab.SL SL PRN (06:13)
[2017-12-28] MEDS ORDERED: Lidocaine 2% 100 MG/5 ML Syringe IVPUSH PRN (06:13)
[2017-12-28] MEDS ORDERED: EPINEPHrine 1:10,000 1 MG/10 ML Syringe IVPUSH PRN (06:13)
[2017-12-28] MEDS ORDERED: Omeprazole 20 MG Cap.CR PO SCH (07:30)
[2017-12-28] MEDS: Apixaban 5 MG Tab PO SCH (08:54)
[2017-12-28] MEDS ORDERED: Metoprolol Tartrate 25 MG Tab PO SCH (09:00)
--- NOTE | 2017-12-28 14:51 | DISCH ---
This is a 72-year-old female who was admitted to the hospital through the emergency room last evening with atrial fibrillation with rapid ventricular rate. She had an RVR of 143 on initial presentation to the emergency room. She did receive diltiazem in the emergency room and converted into normal sinus rhythm after a long asystolic pause. After admission to the hospital and to the floor, she also received diltiazem and converted to sinus rhythm after a long pause. She has been in sinus rhythm since that time with a rate of 60-70 with no ectopics noted. 12-lead EKG this morning shows sinus bradycardia with a ventricular rate of 57 beats per minute; good R-wave progression through precordial leads; no ectopics or conduction delays; no acute ST-T wave changes. Significant lab data includes a normal CBC, INR of 1.1. She is on Eliquis for chronic atrial fibrillation. Continuing with my commentary regarding lab work, chemistries were normal with the exception of a mildly elevated sodium of 146 with a normal reference range being 135-145. Glucose was 127. Magnesium was 1.8 this morning. Her troponins have been less than 0.04 initially and 0.05 today. TSH was normal at 1.450. She was hospitalized a few months ago with the same. She had gone into paroxysmal atrial fibrillation at that time, which then prompted initiation of metoprolol as well as Eliquis. She has not had a Cardiology consultation, which I feel is very appropriate at this juncture. She may need to see Electrophysiology for possible maze procedure for myocardial mapping and possible ablation. She is discharged with the medication she was admitted with, which include Eliquis, metoprolol, omeprazole as well as Imuran. She is a posttransplant patient. PHYSICAL EXAMINATION: VITAL SIGNS: Vital signs have been stable since she has been in the hospital in observation with a temp being 97.9, pulse 61, respirations 20, blood pressure 153/82, oxygen saturation has been 95% on room air. SKIN: Warm and dry to touch. CARDIAC: Reveals S1, S2 to be normal. Rate and rhythm are regular. No murmur, click, or gallop is auscultated. LUNGS: Clear without rales, wheezes, or rhonchi. EXTREMITIES: There is no pedal edema. FINAL IMPRESSION AND FINAL HOSPITALIZATION DIAGNOSIS: Include atrial fibrillation with rapid ventricular rate, now converted to sinus bradycardia after administration of Cardizem. Should this recur at home, she will present to the hospital via ambulance. I feel confident that she is stable enough to be discharged at this time. She will continue all same medications. I will schedule a Cardiology consult for her in the near future. She will follow up with me in the clinic in one week. Should she have any problems, questions, or concerns prior to that time, I have urged her to call the hospital or the clinic. /[id number]/MODL
== END 2017-12-28 11:34 | disposition home or self-care (01) | DRG 309 ==
LOC: KA.ED 20:08 → UNDOADMIN 21:25 → KA.MS 21:25 → UNDOADMIN 12-28 00:01
DX: I48.0 Paroxysmal atrial fibrillation (principal); R06.02 Shortness of breath; Z94.4 Liver transplant status; I10 Essential (primary) hypertension; K21.9 Gastro-esophageal reflux disease without esophagitis; E53.8 Deficiency of other specified B group vitamins; Z87.891 Personal history of nicotine dependence; Z88.8 Allergy status to other drugs, medicaments and biological substances; Z79.899 Other long term (current) drug therapy
CPT/HCPCS: 36415; 71046; 80048; 82550; 82553; 83735; 83880; 84443; 84484; 85025; 85610; 93005; 96374; 99285; A9270-GY; J3490; J7050

== ENCOUNTER 2018-02-16 00:04 | Emergency (ER) | payer MEDICARE, BC ==
[2018-02-16] MEDS ORDERED: Aspirin 81 MG Tab.Chew ONE (00:13)
[2018-02-16] MEDS ORDERED: Nitroglycerin 0.4 MG Tab.SL ONE (00:14)
[2018-02-16] MEDS ORDERED: Metoprolol Tartrate 5 MG/5 ML SDV IVPUSH ONE ×3 (00:15→00:44)
[2018-02-16] MEDS ORDERED: Nitroglycerin 0.4 MG Tab.SL SL PRN (00:16)
[2018-02-16] MEDS ORDERED: Aspirin 81 MG Tab.Chew PO ONE (00:16)
--- NOTE | 2018-02-16 00:22 | EDM.PDOC ---
ED HPI GENERAL MEDICAL PROBLEM - General Chief Complaint: Chest Pain Stated Complaint: chest pain Time Seen by Provider: 02/16/18 00:08 Source of Information: Reports: Patient History Limitations: Reports: No Limitations - History of Present Illness INITIAL COMMENTS - FREE TEXT/NARRATIVE: Patient presents via ambulance intercept from [place] with mid chest pressure, pain between shoulder blades, and jaw pain that started 2 hours ago. She also has palpitations and racing heart feeling. 6 hours ago she started feeling nausea after eating supper. She slept awhile then got up at 9:30 and was sweating at that time. A little before 10:00 she began feeling the heart racing and chest pain. She denies any history of NC or stents but has had 3 episodes of A Rib with RVR, although those didn't involve pain or pressure. She takes Eliquis for A Fib. She took a nitro at home and another in ambulance but neither helped. She says it doesn't feel like reflux or heartburn. Chest Pain Score (Numeric/FACES): 7 - Related Data Allergies Allergy/AdvReac Type Severity Reaction Status Date / Time mycophenolate mofetil Allergy Rash Verified 02/16/18 00:17 [From CellCept] Home Meds: Home Meds azaTHIOprine [Imuran] 150 mg PO DAILY 08/27/17 [History] Omeprazole 20 mg PO ACBREAKFAST 11/01/17 [History] Apixaban [Eliquis] 5 mg PO BID #0 tablet 11/02/17 [Rx] Sotalol HCl [Sotalol] 80 mg PO BID 02/16/18 [History] Past Medical History HEENT History: Reports: Cataract, Hard of Hearing, Impaired Vision Cardiovascular History: Reports: Afib, Hypertension, Other (See Below) Other Cardiovascular History: new onset of a-fib Respiratory History: Reports: None Gastrointestinal History: Reports: GERD, Hiatal Hernia Other Gastrointestinal History: liver transplant (due to meds Genitourinary History: Reports: Urinary Incontinence 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: Musculoskeletal History: Reports: Arthritis, Back Pain, Chronic Neurological History: Reports: None, Other (See Below) Other Neuro History: numbness to L calf and ankle Psychiatric History: Reports: None Endocrine/Metabolic History: Reports: None Hematologic History: Reports: B12 Deficiency, Blood Transfusion(s), Other (See Below) Other Hematologic History: new dx for B 12 deficiency Immunologic History: Reports: Solid Organ Transplant Other Immunologic History: liver transplant Oncologic (Cancer) History: Reports: None Dermatologic History: Reports: None - Infectious Disease History Infectious Disease History: Reports: Chicken Pox, Measles, Mumps, Shingles - Past Surgical History HEENT Surgical History: Reports: Adenoidectomy, Cataract Surgery, Myringotomy w Tube(s), Tonsillectomy Cardiovascular Surgical History: Reports: None Respiratory Surgical History: Reports: None GI Surgical History: Reports: Appendectomy, Cholecystectomy, Colonoscopy, Other (See Below) Other GI Surgeries/Procedures: liver transplant Female Surgical History: Reports: Hysterectomy, Salpingo-Oophorectomy Endocrine Surgical History: Reports: None Neurological Surgical History: Reports: None Musculoskeletal Surgical History: Reports: Knee Replacement Dermatological Surgical History: Reports: None Social & Family History - Family History HEENT: Reports: None Cardiac: Reports: None, Hypertension Respiratory: Reports: None GI: Reports: None : Reports: None OBGYN: Reports: None Musculoskeletal: Reports: None Neurological: Reports: None Psychiatric: Reports: None Endocrine/Metabolic: Reports: None Hematologic: Reports: None Immunologic: Reports: None Dermatologic: Reports: None Oncologic: Reports: None - Caffeine Use Caffeine Use: Reports: Coffee, Tea ED ROS GENERAL - Review of Systems Review Of Systems: See Below Constitutional: Reports: Chills, Malaise, Fatigue, Diaphoresis. Denies: Fever, Weakness HEENT: Reports: No Symptoms. Denies: Vision Change Respiratory: Denies: Shortness of Breath, Sputum Cardiovascular: Reports: Chest Pain, Palpitations. Denies: Lightheadedness, Syncope Endocrine: Reports: No Symptoms GI/Abdominal: Reports: Nausea. Denies: Abdominal Pain, Vomiting : Reports: No Symptoms Musculoskeletal: Denies: Neck Pain, Shoulder Pain, Arm Pain Skin: Reports: Diaphoresis. Denies: Cyanosis, Jaundice, Mottled, Pallor Neurological: Denies: Confusion, Dizziness, Headache, Trouble Speaking, Weakness Psychiatric: Denies: Agitation, Anxiety, Confusion Hematologic/Lymphatic: Reports: Easy Bleeding (Eliquis). Denies: Anemia ED EXAM, GENERAL - Physical Exam Exam: See Below Exam Limited By: No Limitations General Appearance: Alert, WD/WN, No Apparent Distress Eye Exam: Bilateral Eye: EOMI, Normal Inspection, PERRL Ears: Normal External Exam, Hearing Grossly Normal Nose: Normal Inspection, No Blood Throat/Mouth: Normal Inspection, Normal Lips, Normal Voice, No Airway Compromise Head: Atraumatic, Normocephalic Neck: Normal Inspection, Full Range of Motion Respiratory/Chest: No Respiratory Distress, Lungs Clear, Normal Breath Sounds, No Accessory Muscle Use Cardiovascular: Normal Peripheral Pulses, No Murmur, Tachycardia Peripheral Pulses: 2+: Carotid (L), Carotid (R), Radial (L), Radial (R), Posterior Tibial (L), Posterior Tibial (R) GI/Abdominal: Soft, Non-Tender Extremities: Normal Inspection, Non-Tender, No Pedal Edema, Normal Capillary Refill Neurological: Alert, Oriented, Normal Cognition, No Motor/Sensory Deficits Psychiatric: Normal Affect, Normal Mood Skin Exam: Warm, Dry, Intact, Normal Color, No Rash Course - Vital Signs Last Recorded V/S: Last Vital Signs Temp 98.5 F 02/16/18 00:10 Pulse 125 H 02/16/18 01:30 Resp 18 02/16/18 00:10 BP 129/79 02/16/18 01:30 Pulse Ox 96 02/16/18 00:10 - Orders/Labs/Meds Orders: Active Orders 24 hr Category Date Time Status Patient Status [ADT] Routine ADT 02/16/18 01:50 Ordered EKG Documentation Completion [RC] ASDIRECTED Care 02/16/18 00:17 Active Chest 1V Frontal [CR] Stat Exams 02/16/18 00:16 Ordered Nitroglycerin [Nitrostat] Med 02/16/18 00:16 Active 0.4 mg SL Q5M PRN EKG 12 Lead [EK] Routine Ther 02/16/18 00:16 Ordered Medication Orders Nitroglycerin (Nitrostat) 0.4 mg SL Q5M PRN PRN Reason: Chest Pain Last Admin: 02/16/18 00:20 Dose: 0.4 mg Labs: Laboratory Tests 02/15/18 02/15/18 Range/Units 23:45 23:45 WBC 9.8 (5.0-10.0) 10^3/uL RBC 3.87 (3.80-5.50) 10^6/uL Hgb 13.5 D (12.0-16.0) g/dL Hct 38.7 (37.0-47.0) % MCV 99.9 H (82.0-92.0) fL MCH 34.8 H (27.0-31.0) pg MCHC 34.8 (32.0-36.0) g/dL RDW 14.6 H (11.5-14.5) % Plt Count 158 D (150-300) 10^3/uL MPV 7.8 (7.4-10.4) fL Neut % (Auto) 86.8 H (50.0-70.0) % Lymph % (Auto) 6.9 L (20.0-40.0) % [place] % (Auto) 5.2 (2.0-8.0) % Eos % (Auto) 0.8 L (1.0-3.0) % Baso % (Auto) 0.3 (0.0-1.0) % Neut # (Auto) 8.5 H (2.5-7.0) 10^3/uL Lymph # (Auto) 0.7 L (1.0-4.0) 10^3/uL [place] # (Auto) 0.5 (0.1-0.8) 10^3/uL Eos # (Auto) 0.1 (0.1-0.3) 10^3/uL Baso # (Auto) 0.0 (0.0-0.1) 10^3/uL Sodium 140 (136-145) mmol/L Potassium 3.8 (3.3-5.3) mmol/L Chloride 104 (98-115) mmol/L Carbon Dioxide 23.8 (21.0-32.0) mmol/L BUN 15 (6-25) mg/dL Creatinine 0.64 (0.51-1.17) mg/dL Est Cr Clr Drug Dosing TNP Estimated GFR (MDRD) > 60 mL/min Glucose 176 H (70-110) mg/dL Calcium 9.2 (8.7-10.3) mg/dL Troponin I < 0.04 (0.00-0.070) ng/mL Meds: Medications Generic Name Dose Route Start Last Admin Trade Name Freq PRN Reason Stop Dose Admin Nitroglycerin 0.4 mg 02/16/18 00:16 02/16/18 00:20 Nitrostat SL 0.4 mg Q5M PRN Administration Chest Pain Discontinued Medications Generic Name Dose Route Start Last Admin Trade Name Bari PRN Reason Stop Dose Admin Al Hydroxide/Mg Hydroxide Confirm 02/16/18 01:04 02/16/18 01:17 Gi Cocktail Administered 02/16/18 01:05 Not Given Dose 45 ml .ROUTE .STK-MED ONE Al Hydroxide/Mg Hydroxide 45 ml 02/16/18 01:00 02/16/18 01:16 Gi Cocktail PO 02/16/18 01:01 45 ml ONETIME ONE Administration Aspirin Confirm 02/16/18 00:13 02/16/18 00:27 Aspirin Administered 02/16/18 00:14 Not Given Dose 324 mg .ROUTE .STK-MED ONE Aspirin 324 mg 02/16/18 00:16 02/16/18 00:18 Aspirin PO 02/16/18 00:17 324 mg ONETIME ONE Administration Diltiazem HCl 20 mg 02/16/18 01:22 02/16/18 01:30 Diltiazem IVPUSH 02/16/18 01:23 20 mg ONETIME ONE Administration Magnesium Sulfate 4 gm/ Premix 100 mls @ 200 mls/hr 02/16/18 02:20 02/16/18 02:32 IV 02/16/18 02:49 200 mls/hr ONETIME ONE Administration Sodium Chloride Confirm 02/16/18 02:50 Normal Saline Administered 02/16/18 02:51 Dose 50 mls @ as directed .ROUTE .STK-MED ONE Metoprolol Tartrate 5 mg 02/16/18 00:15 02/16/18 00:23 Lopressor IVPUSH 02/16/18 00:16 5 mg ONETIME ONE Administration Metoprolol Tartrate 5 mg 02/16/18 00:32 02/16/18 00:34 Lopressor IVPUSH 02/16/18 00:33 5 mg ONETIME ONE Administration Metoprolol Tartrate Confirm 02/16/18 00:33 02/16/18 00:38 Lopressor Administered 02/16/18 00:34 Not Given Dose 5 mg .ROUTE .STK-MED ONE Metoprolol Tartrate 5 mg 02/16/18 00:44 02/16/18 00:45 Lopressor IVPUSH 02/16/18 00:45 5 mg ONETIME ONE Administration Morphine Sulfate 4 mg 02/16/18 00:50 02/16/18 00:52 Morphine IVPUSH 02/16/18 00:51 4 mg ONETIME ONE Administration Morphine Sulfate Confirm 02/16/18 00:51 02/16/18 00:54 Morphine Administered 02/16/18 00:52 Not Given Dose 10 mg .ROUTE .STK-MED ONE Nitroglycerin Confirm 02/16/18 00:14 02/16/18 00:27 Nitrostat Administered 02/16/18 00:15 Not Given Dose 0.4 mg .ROUTE .STK-MED ONE - Re-Assessments/Exams Free Text/Narrative Re-Assessment/Exam: 02/16/18 00:38 ASA, Nitro, Metoprolol 5 mg x 2 are in and no change. EKG shows A FIb with RVR but no ST changes. Patient still feeling pressure across mid chest that she rates at 4-5/10, unchanged. She has had total 3 rounds of nitro now. She says metoprolol has worked well for the rapid A Fib in the past. 02/16/18 00:51 Total 3 doses of metoprolol now and no change in rate or pain. Will give morphine 4 mg. Trop is negative. 02/16/18 01:11 Will try GI cocktail. Outsmart flagged it as interaction with Eliquis but the medications discussed as interacting are not in our GI cocktail. I discussed this with telepharmacy who checked and assured me that there should be no interactions. 02/16/18 01:24 The patient reports improvement of pain after morphine from 4 to 2 but still feeling the pain. After the GI cocktail the pain went away quite quickly. HR is still up but running 100-130 rather than 120-150 on presentation. 02/16/18 01:47 Diltiazem brought HR down to 70's and holding steady. Patient is now feeling tired but otherwise fine. Chest pain is gone. Palpitations gone. Will keep for observation overnight. 02/16/18 02:26 As we were getting patient ready to transfer to floor for observation she suddenly jerked back and said she felt a jolt from her head to her toes. We looked up at the monitor and saw she was in asystole for about 8 seconds. Five minutes later she had another episode. I talked with [facility] professor of psychologyfrancisco javier Baum and hospitalist Dr. Tam who accepted for transfer and requests magnesium sulfate 4 mg IV before transfer. After we got off phone and I was talking with patient about the transfer she had three short episodes in succession. I was checking right radial pulse when the last episode started and confirmed that she was suddenly pulseless for several seconds in concordance with the asystole on monitor but no LOC. We were able to record and print the episodes and will send with to [facility]. Patient tells me she had an episode of awake asystole the last time she was in ER but no more than one. She denies any episodes of syncope at home. Departure - Departure Time of Disposition: 02:34 Disposition: DC/Tfer to Acute Hospital 02 Reason for Transfer *Q: Other Condition: Good Clinical Impression: Cardiac asystole, Rapid atrial fibrillation A-fib Qualifiers: Atrial fibrillation type: paroxysmal Qualified Code(s): I48.0 - Paroxysmal atrial fibrillation Forms: ED Department Discharge - My Orders Last 24 Hours: My Active Orders 02/16/18 00:16 Chest 1V Frontal [CR] Stat Nitroglycerin [Nitrostat] 0.4 mg SL Q5M PRN EKG 12 Lead [EK] Routine 02/16/18 00:17 EKG Documentation Completion [RC] ASDIRECTED 02/16/18 01:50 Patient Status [ADT] Routine - Assessment/Plan Last 24 Hours: My Active Orders 02/16/18 00:16 Chest 1V Frontal [CR] Stat Nitroglycerin [Nitrostat] 0.4 mg SL Q5M PRN EKG 12 Lead [EK] Routine 02/16/18 00:17 EKG Documentation Completion [RC] ASDIRECTED 02/16/18 01:50 Patient Status [ADT] Routine
[2018-02-16] MEDS ORDERED: Metoprolol Tartrate 5 MG/5 ML SDV ONE (00:33)
[2018-02-16 00:43] LABS: CHLORIDE,CL 104 mmol/L (98-115); SODIUM,NA 140 mmol/L (136-145)
[2018-02-16] MEDS ORDERED: Morphine 4 MG/ML Syringe IVPUSH ONE (00:50)
[2018-02-16] MEDS ORDERED: Morphine 10 MG/ML Syringe ONE (00:51)
[2018-02-16] MEDS ORDERED: GI Cocktail 45 ML BOTTLE PO ONE (01:00)
[2018-02-16] MEDS ORDERED: GI Cocktail 45 ML BOTTLE ONE (01:04)
[2018-02-16] MEDS ORDERED: Diltiazem 25 MG/5 ML SDV IVPUSH ONE (01:22)
[2018-02-16] MEDS ORDERED: Magnesium Sulfate/Water 4 GM in Premix Bag 1 BAG IV ONE (02:20)
[2018-02-16] MEDS ORDERED: Sodium Chloride 0.9% 50 ML ONE (02:50)
[2018-02-16] MEDS ORDERED: Sodium Chloride 0.9% 1,000 ML ONE (03:21)
== END 2018-02-16 03:00 ==
LOC: KA.ED 00:04 → SUPCPDRO 00:04 → KA.ED 03:00
DX: I46.9 Cardiac arrest, cause unspecified (principal); I48.0 Paroxysmal atrial fibrillation; I48.91 Unspecified atrial fibrillation; I10 Essential (primary) hypertension; K21.9 Gastro-esophageal reflux disease without esophagitis; Z88.8 Allergy status to other drugs, medicaments and biological substances; Z79.899 Other long term (current) drug therapy
CPT/HCPCS: 71045; 80048; 84484; 85025; 93005; 96374; 96375; 99285; A9270-GY; J2270; J3475; J3490; J7030

== ENCOUNTER 2018-03-24 04:47 | Emergency (ER) | payer MEDICARE, BC ==
--- NOTE | 2018-03-24 05:06 | EDM.PDOC ---
ED HPI GENERAL MEDICAL PROBLEM - General Chief Complaint: Chest Pain Stated Complaint: Chest Pain Time Seen by Provider: 03/24/18 04:50 Source of Information: Reports: Patient, EMS History Limitations: Reports: No Limitations - History of Present Illness INITIAL COMMENTS - FREE TEXT/NARRATIVE: 73 YO WF presents to ER by EMS complaining of chest pain which began at 3am tonight. Pt reports she woke with substernal chest pain with radiation to left side of neck and jaw. Pt with associated shortness of breath and dizziness which she became concerned prompting EMS call. Pt reports history of Atrial Fibrillation and had an ablation performed 1 week ago in [place] by Dr Damon. Pt states she feels better currently. Pt denies any active chest pain at this time. Pt denies any diaphoresis, no nausea/vomiting at this time. Onset: Sudden Onset Date: 03/24/18 Onset Time: 03:00 Location: Reports: Chest Quality: Reports: Ache Severity: Mild Improves with: Reports: None Worsens with: Reports: None Associated Symptoms: Reports: Chest Pain, Shortness of Breath. 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 Chest Pain Score (Numeric/FACES): 4 - Related Data Allergies Allergy/AdvReac Type Severity Reaction Status Date / Time mycophenolate mofetil Allergy Rash Verified 03/24/18 05:35 [From CellCept] Home Meds: Home Meds azaTHIOprine [Imuran] 150 mg PO DAILY 08/27/17 [History] Omeprazole 20 mg PO ACBREAKFAST 11/01/17 [History] Apixaban [Eliquis] 5 mg PO BID #0 tablet 11/02/17 [Rx] Sotalol HCl [Sotalol] 80 mg PO BID 02/16/18 [History] Calcium Carbonate/Vitamin D3 [Os-Eddie 500+D] 1 tab PO DAILY 03/24/18 [History] Past Medical History HEENT History: Reports: Cataract, Hard of Hearing, Impaired Vision Cardiovascular History: Reports: Afib, Hypertension, Other (See Below) Other Cardiovascular History: new onset of a-fib Respiratory History: Reports: None Gastrointestinal History: Reports: GERD, Hiatal Hernia Other Gastrointestinal History: liver transplant (due to meds Genitourinary History: Reports: Urinary Incontinence 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: Musculoskeletal History: Reports: Arthritis, Back Pain, Chronic Neurological History: Reports: None, Other (See Below) Other Neuro History: numbness to L calf and ankle Psychiatric History: Reports: None Endocrine/Metabolic History: Reports: None Hematologic History: Reports: B12 Deficiency, Blood Transfusion(s), Other (See Below) Other Hematologic History: new dx for B 12 deficiency Immunologic History: Reports: Solid Organ Transplant Other Immunologic History: liver transplant Oncologic (Cancer) History: Reports: None Dermatologic History: Reports: None - Infectious Disease History Infectious Disease History: Reports: Chicken Pox, Measles, Mumps, Shingles - Past Surgical History HEENT Surgical History: Reports: Adenoidectomy, Cataract Surgery, Myringotomy w Tube(s), Tonsillectomy Cardiovascular Surgical History: Reports: None Respiratory Surgical History: Reports: None GI Surgical History: Reports: Appendectomy, Cholecystectomy, Colonoscopy, Other (See Below) Other GI Surgeries/Procedures: liver transplant Female Surgical History: Reports: Hysterectomy, Salpingo-Oophorectomy Endocrine Surgical History: Reports: None Neurological Surgical History: Reports: None Musculoskeletal Surgical History: Reports: Knee Replacement Dermatological Surgical History: Reports: None Social & Family History - Family History HEENT: Reports: None Cardiac: Reports: None, Hypertension Respiratory: Reports: None GI: Reports: None : Reports: None OBGYN: Reports: None Musculoskeletal: Reports: None Neurological: Reports: None Psychiatric: Reports: None Endocrine/Metabolic: Reports: None Hematologic: Reports: None Immunologic: Reports: None Dermatologic: Reports: None Oncologic: Reports: None - Caffeine Use Caffeine Use: Reports: Coffee, Tea ED ROS GENERAL - Review of Systems Review Of Systems: See Below Constitutional: Reports: No Symptoms HEENT: Reports: No Symptoms Respiratory: Reports: Shortness of Breath Cardiovascular: Reports: Chest Pain, Lightheadedness Endocrine: Reports: No Symptoms GI/Abdominal: Reports: No Symptoms : Reports: No Symptoms Musculoskeletal: Reports: No Symptoms Skin: Reports: No Symptoms Neurological: Reports: No Symptoms Psychiatric: Reports: No Symptoms Hematologic/Lymphatic: Reports: No Symptoms Immunologic: Reports: No Symptoms ED EXAM, GENERAL - Physical Exam Exam: See Below Exam Limited By: No Limitations General Appearance: Alert, WD/WN, No Apparent Distress Neck: Normal Inspection, Supple, Non-Tender, Full Range of Motion Respiratory/Chest: No Respiratory Distress, Lungs Clear, Normal Breath Sounds, No Accessory Muscle Use, Chest Non-Tender Cardiovascular: Normal Peripheral Pulses, No Edema, No Gallop, No JVD, No Murmur , No Rub, Tachycardia, Irregularly Irregular GI/Abdominal: Normal Bowel Sounds, Soft, Non-Tender, No Organomegaly, No Distention, No Abnormal Bruit, No Mass Back Exam: Normal Inspection, Full Range of Motion, NT Extremities: Normal Inspection, Normal Range of Motion, Non-Tender, Normal Capillary Refill, No Pedal Edema Neurological: Alert, Oriented, CN II-XII Intact, Normal Cognition, Normal Gait, Normal Reflexes, No Motor/Sensory Deficits Psychiatric: Normal Affect, Normal Mood Skin Exam: Warm, Dry, Intact, Normal Color, No Rash Lymphatic: No Adenopathy EKG INTERPRETATION EKG Date: 03/24/18 Time: 05:07 Rhythm: A-Fib Rate (Beats/Min): 151 [place]: Normal P-Wave: Absent QRS: Normal ST-T: Normal QT: Normal Course - Vital Signs Last Recorded V/S: Last Vital Signs Temp 36.8 C 03/24/18 04:55 Pulse 154 H 03/24/18 05:12 Resp 18 03/24/18 04:55 BP 146/92 H 03/24/18 05:12 Pulse Ox 98 03/24/18 04:55 - Orders/Labs/Meds Orders: Active Orders 24 hr Category Date Time Status Cardiac Monitoring [RC] . DIRECTED Care 03/24/18 04:56 Active EKG Documentation Completion [RC] ASDIRECTED Care 03/24/18 04:56 Ordered Oxygen Therapy, ED [RC] ASDIRECTED Care 03/24/18 04:56 Active Chest 1V Frontal [CR] Stat Exams 03/24/18 04:55 Ordered EKG 12 Lead [EK] Routine Ther 03/24/18 04:55 Ordered Labs: Laboratory Tests 03/24/18 03/24/18 03/24/18 Range/Units 04:40 04:40 04:40 WBC 6.4 (5.0-10.0) 10^3/uL RBC 3.93 (3.80-5.50) 10^6/uL Hgb 12.9 (12.0-16.0) g/dL Hct 39.8 (37.0-47.0) % MCV 101.4 H (82.0-92.0) fL MCH 32.8 H (27.0-31.0) pg MCHC 32.3 (32.0-36.0) g/dL RDW 14.9 H (11.5-14.5) % Plt Count 308 H D (150-300) 10^3/uL MPV 7.5 (7.4-10.4) fL Neut % (Auto) 51.4 (50.0-70.0) % Lymph % (Auto) 32.7 (20.0-40.0) % [place] % (Auto) 11.3 H (2.0-8.0) % Eos % (Auto) 1.9 (1.0-3.0) % Baso % (Auto) 2.7 H (0.0-1.0) % Neut # (Auto) 3.3 (2.5-7.0) 10^3/uL Lymph # (Auto) 2.1 (1.0-4.0) 10^3/uL [place] # (Auto) 0.7 (0.1-0.8) 10^3/uL Eos # (Auto) 0.1 (0.1-0.3) 10^3/uL Baso # (Auto) 0.2 H (0.0-0.1) 10^3/uL PT 9.9 (8.9-11.4) SEC INR 1.0 (0.9-1.1) APTT 26.2 (20.8-31.2) SEC Sodium 142 (136-145) mmol/L Potassium 4.0 (3.3-5.3) mmol/L Chloride 107 (98-115) mmol/L Carbon Dioxide 24.9 (21.0-32.0) mmol/L BUN 15 (6-25) mg/dL Creatinine 0.67 (0.51-1.17) mg/dL Est Cr Clr Drug Dosing TNP Estimated GFR (MDRD) > 60 mL/min Glucose 126 H (70-110) mg/dL Calcium 9.3 (8.7-10.3) mg/dL Total Bilirubin 0.3 (0.2-1.0) mg/dL AST 40 H (15-37) U/L ALT 26 (12-78) U/L Alkaline Phosphatase 139 H (46-116) IU/L Creatine Kinase 47 (26-276) U/L CK-MB (CK-2) 1.00 (0.00-4.30) ng/mL Troponin I 0.07 (0.00-0.070) ng/mL B-Natriuretic Peptide 552 H (0-100) pg/mL Total Protein 7.3 (6.4-8.2) g/dL Albumin 3.25 (3.00-4.80) g/dL Meds: Medications Discontinued Medications Generic Name Dose Route Start Last Admin Trade Name Erasmoq PRN Reason Stop Dose Admin Diltiazem HCl 10 mg 03/24/18 05:06 03/24/18 05:12 Diltiazem IVPUSH 03/24/18 05:07 10 mg ONETIME ONE Administration Sodium Chloride Confirm 03/24/18 05:09 Normal Saline Administered 03/24/18 05:10 Dose 500 mls @ as directed .ROUTE .STK-MED ONE - Radiology Interpretation Free Text/Narrative:: CXR- mild cephelization; NAD - Re-Assessments/Exams Free Text/Narrative Re-Assessment/Exam: 03/24/18 05:58 after cardizem 10mg IV- Pt HR-88 BP-134/72- no active chest pain at this time Departure - Departure Time of Disposition: 05:55 Disposition: DC/Tfer to Acute Hospital 02 Reason for Transfer *Q: Other (higher level of care for cardioversion) Condition: Fair Clinical Impression: Atrial fibrillation Qualifiers: Atrial fibrillation type: persistent Qualified Code(s): I48.1 - Persistent atrial fibrillation Chest pain Qualifiers: Chest pain type: unspecified Qualified Code(s): R07.9 - Chest pain, unspecified Forms: ED Department Discharge, Interfacility Transfer EMTALA - My Orders Last 24 Hours: My Active Orders 03/24/18 04:55 Chest 1V Frontal [CR] Stat EKG 12 Lead [EK] Routine 03/24/18 04:56 Cardiac Monitoring [RC] . DIRECTED EKG Documentation Completion [RC] ASDIRECTED Oxygen Therapy, ED [RC] ASDIRECTED - Assessment/Plan Last 24 Hours: My Active Orders 03/24/18 04:55 Chest 1V Frontal [CR] Stat EKG 12 Lead [EK] Routine 03/24/18 04:56 Cardiac Monitoring [RC] . DIRECTED EKG Documentation Completion [RC] ASDIRECTED Oxygen Therapy, ED [RC] ASDIRECTED Assessment:: 1. Atrial Fib- RVR 2. Chest pain Plan: 1. Discussed case with Dr Pineda (cardiology) who wants patient sent to ER in [place] for cardioversion 2. Patient agreed- will send by ALS 3. supportive care
[2018-03-24] MEDS ORDERED: Sodium Chloride 0.9% 500 ML ONE (05:09)
[2018-03-24] MEDS: Diltiazem 25 MG/5 ML SDV IVPUSH ONE (05:12)
[2018-03-24 05:33] LABS: CHLORIDE,CL 107 mmol/L (98-115); SODIUM,NA 142 mmol/L (136-145)
== END 2018-03-24 06:20 ==
LOC: KA.ED 04:47
DX: I48.1 Persistent atrial fibrillation (principal); I10 Essential (primary) hypertension; K21.9 Gastro-esophageal reflux disease without esophagitis; Z88.8 Allergy status to other drugs, medicaments and biological substances; Z79.899 Other long term (current) drug therapy
CPT/HCPCS: 71045; 80053; 82550; 82553; 83880; 84484; 85025; 85610; 85730; 93005; 96374; 99284; 99285; J3490

== ENCOUNTER 2018-03-28 21:48 | Emergency (ER) | payer MEDICARE, BC ==
--- NOTE | 2018-03-28 22:18 | EDM.PDOC ---
ED HPI GENERAL MEDICAL PROBLEM - General Chief Complaint: Cardiovascular Problem Stated Complaint: Afib racing Time Seen by Provider: 03/28/18 22:01 Source of Information: Reports: Patient History Limitations: Reports: No Limitations - History of Present Illness INITIAL COMMENTS - FREE TEXT/NARRATIVE: Patient presents feeling weak and tired. At 0330 this morning she awoke with this feeling but it resolved by 0630. She saw her PCP in clinic this morning but HR was in the 70's and she felt fine so went back home. She tells me that she felt it come back off and on this afternoon but it has been worse since about 1800. She has had several episodes of A Fib with RVR and two weeks ago had an ablation in [place]. A week ago she had to be transferred up there again with tachycardia. She denies chest pain but did have some bilat shoulder pain today. - Related Data Allergies Allergy/AdvReac Type Severity Reaction Status Date / Time mycophenolate mofetil Allergy Rash Verified 03/28/18 22:01 [From CellCept] Home Meds: Home Meds azaTHIOprine [Imuran] 150 mg PO DAILY 08/27/17 [History] Omeprazole 40 mg PO BID 11/01/17 [History] Apixaban [Eliquis] 5 mg PO BID #0 tablet 11/02/17 [Rx] Sotalol HCl [Sotalol] 120 mg PO BID 02/16/18 [History] Calcium Carbonate/Vitamin D3 [Os-Eddie 500+D] 1 tab PO BID 03/24/18 [History] Past Medical History HEENT History: Reports: Cataract, Hard of Hearing, Impaired Vision Cardiovascular History: Reports: Afib, Hypertension, Other (See Below) Other Cardiovascular History: new onset of a-fib Respiratory History: Reports: None Gastrointestinal History: Reports: GERD, Hiatal Hernia Other Gastrointestinal History: liver transplant (due to meds Genitourinary History: Reports: Urinary Incontinence 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: Musculoskeletal History: Reports: Arthritis, Back Pain, Chronic Neurological History: Reports: None, Other (See Below) Other Neuro History: numbness to L calf and ankle Psychiatric History: Reports: None Endocrine/Metabolic History: Reports: None Hematologic History: Reports: B12 Deficiency, Blood Transfusion(s), Other (See Below) Other Hematologic History: new dx for B 12 deficiency Immunologic History: Reports: Solid Organ Transplant Other Immunologic History: liver transplant Oncologic (Cancer) History: Reports: None Dermatologic History: Reports: None - Infectious Disease History Infectious Disease History: Reports: Chicken Pox, Measles, Mumps, Shingles - Past Surgical History HEENT Surgical History: Reports: Adenoidectomy, Cataract Surgery, Myringotomy w Tube(s), Tonsillectomy Cardiovascular Surgical History: Reports: None Respiratory Surgical History: Reports: None GI Surgical History: Reports: Appendectomy, Cholecystectomy, Colonoscopy, Other (See Below) Other GI Surgeries/Procedures: liver transplant Female Surgical History: Reports: Hysterectomy, Salpingo-Oophorectomy Endocrine Surgical History: Reports: None Neurological Surgical History: Reports: None Musculoskeletal Surgical History: Reports: Knee Replacement Dermatological Surgical History: Reports: None Social & Family History - Family History HEENT: Reports: None Cardiac: Reports: None, Hypertension Respiratory: Reports: None GI: Reports: None : Reports: None OBGYN: Reports: None Musculoskeletal: Reports: None Neurological: Reports: None Psychiatric: Reports: None Endocrine/Metabolic: Reports: None Hematologic: Reports: None Immunologic: Reports: None Dermatologic: Reports: None Oncologic: Reports: None - Caffeine Use Caffeine Use: Reports: Coffee, Tea ED ROS GENERAL - Review of Systems Review Of Systems: See Below Constitutional: Reports: Malaise, Weakness, Fatigue. Denies: Fever, Chills, Diaphoresis HEENT: Reports: No Symptoms Respiratory: Reports: No Symptoms. Denies: Shortness of Breath Cardiovascular: Reports: Palpitations. Denies: Chest Pain, Lightheadedness, Syncope Endocrine: Reports: Fatigue GI/Abdominal: Reports: No Symptoms : Reports: No Symptoms Musculoskeletal: Reports: Shoulder Pain. Denies: Neck Pain Skin: Denies: Cyanosis, Jaundice, Mottled, Pallor, Diaphoresis Neurological: Reports: Weakness. Denies: Confusion, Dizziness, Seizure, Syncope , Trouble Speaking Psychiatric: Denies: Agitation, Anxiety, Confusion ED EXAM, GENERAL - Physical Exam Exam: See Below Exam Limited By: No Limitations General Appearance: Alert, WD/WN, No Apparent Distress Eye Exam: Bilateral Eye: EOMI, Normal Inspection, PERRL Ears: Normal External Exam, Hearing Grossly Normal Nose: Normal Inspection, No Blood Throat/Mouth: Normal Inspection, Normal Lips, Normal Voice, No Airway Compromise Head: Atraumatic, Normocephalic Neck: Normal Inspection, Supple, Non-Tender, Full Range of Motion Respiratory/Chest: No Respiratory Distress, Lungs Clear, Normal Breath Sounds, No Accessory Muscle Use Cardiovascular: No Murmur, Tachycardia Peripheral Pulses: 1+: Dorsalis Pedis (L) (chronic weak/absent pulse in left ankle), 2+: Carotid (L), Carotid (R), Radial (L), Radial (R), Posterior Tibial ( R), Dorsalis Pedis (R) GI/Abdominal: Normal Bowel Sounds, Soft, Non-Tender, No Organomegaly, No Distention, No Abnormal Bruit, No Mass Extremities: Normal Inspection, Normal Range of Motion, No Pedal Edema, Normal Capillary Refill Neurological: Alert, Oriented, Normal Cognition, No Motor/Sensory Deficits Psychiatric: Normal Affect, Normal Mood Skin Exam: Warm, Dry, Intact, Normal Color, No Rash Course - Vital Signs Last Recorded V/S: Last Vital Signs Temp 97.6 F 03/28/18 21:48 Pulse 91 03/28/18 23:15 Resp 20 03/28/18 23:15 BP 116/65 03/28/18 23:15 Pulse Ox 95 03/28/18 23:15 - Orders/Labs/Meds Orders: Active Orders 24 hr Category Date Time Status EKG Documentation Completion [RC] ASDIRECTED Care 03/28/18 22:13 Ordered EKG 12 Lead [EK] Routine Ther 03/28/18 22:13 Ordered Labs: Laboratory Tests 03/28/18 03/28/18 03/28/18 Range/Units 22:25 22:25 22:25 WBC 6.2 (5.0-10.0) 10^3/uL RBC 3.91 (3.80-5.50) 10^6/uL Hgb 13.2 (12.0-16.0) g/dL Hct 39.0 (37.0-47.0) % MCV 99.8 H (82.0-92.0) fL MCH 33.7 H (27.0-31.0) pg MCHC 33.8 (32.0-36.0) g/dL RDW 14.5 (11.5-14.5) % Plt Count 299 (150-300) 10^3/uL MPV 7.1 L (7.4-10.4) fL Neut % (Auto) 56.6 (50.0-70.0) % Lymph % (Auto) 28.5 (20.0-40.0) % [place] % (Auto) 10.1 H (2.0-8.0) % Eos % (Auto) 1.8 (1.0-3.0) % Baso % (Auto) 3.0 H (0.0-1.0) % Neut # (Auto) 3.5 (2.5-7.0) 10^3/uL Lymph # (Auto) 1.8 (1.0-4.0) 10^3/uL [place] # (Auto) 0.6 (0.1-0.8) 10^3/uL Eos # (Auto) 0.1 (0.1-0.3) 10^3/uL Baso # (Auto) 0.2 H (0.0-0.1) 10^3/uL Sodium 139 (136-145) mmol/L Potassium 4.2 (3.3-5.3) mmol/L Chloride 105 (98-115) mmol/L Carbon Dioxide 25.2 (21.0-32.0) mmol/L BUN 16 (6-25) mg/dL Creatinine 0.70 (0.51-1.17) mg/dL Est Cr Clr Drug Dosing 54.92 mL/min Estimated GFR (MDRD) > 60 mL/min Glucose 113 H (70-110) mg/dL Calcium 9.5 (8.7-10.3) mg/dL Troponin I 0.04 (0.00-0.070) ng/mL TSH, Ultra Sensitive 2.130 (0.340-4.820) uIU/mL Meds: Medications Discontinued Medications Generic Name Dose Route Start Last Admin Trade Name Freq PRN Reason Stop Dose Admin Metoprolol Tartrate 10 mg 03/28/18 22:37 03/28/18 22:42 Lopressor IVPUSH 03/28/18 22:38 10 mg ONETIME ONE Administration Metoprolol Tartrate 50 mg 03/28/18 22:38 03/28/18 22:42 Lopressor PO 03/28/18 22:39 50 mg ONETIME ONE Administration - Re-Assessments/Exams Free Text/Narrative Re-Assessment/Exam: 03/28/18 22:38 I called supervisor reinforced steel placing, Dr. Tyson, at [facility] in [place]. He looked at the EKG from [facility] we faxed to him. She is on Sotalol and had ablation recently. Discussed all this with him and he confirms that it is not A Fib any longer. Since she is on Eliquis he says this is not a dangerous rhythm just more uncomfortable. He recommends Metoprolol 10 mg IVP along with 50 mg PO and if she responds to discharge her on 25 mg bid with follow up outpatient with the supervisor reinforced steel placing who did the ablation for further evaluation and treatment. He also advised to check TSH. 03/28/18 23:23 Patient responded to the metoprolol quite well. The HR still briefly runs up to 110-120 but mostly in 80-90 range. Discussed findings and recommendations with her and she will call tomorrow morning for follow up [facility]. Discharged to home in stable condition. Departure - Departure Time of Disposition: 23:19 Disposition: Home, Self-Care 01 Condition: Good Clinical Impression: Paroxysmal SVT (supraventricular tachycardia) Instructions: Supraventricular Tachycardia, Adult, [id number] Referrals: Yamilex Dai PA-C [Primary Care Provider] - Forms: ED Department Discharge Additional Instructions: 1. Take the metoprolol as directed starting tomorrow morning. 2. Continue your regular medications. 3. Tomorrow call the supervisor reinforced steel placing that did your ablation and inform them about the ER visit [facility] and the EKG faxed to [facility]. See if you can get in for evaluation sooner than your current appointment. You can mention that Dr. Tyson advised you to follow up. 4. Return to ER as needed. - My Orders Last 24 Hours: My Active Orders 03/28/18 22:13 EKG Documentation Completion [RC] ASDIRECTED EKG 12 Lead [EK] Routine - Assessment/Plan Last 24 Hours: My Active Orders 03/28/18 22:13 EKG Documentation Completion [RC] ASDIRECTED EKG 12 Lead [EK] Routine
[2018-03-28] MEDS: Metoprolol Tartrate 5 MG/5 ML SDV IVPUSH ONE (22:42)
[2018-03-28] MEDS: Metoprolol Tartrate 50 MG Tab PO ONE (22:42)
[2018-03-28 23:07] LABS: CHLORIDE,CL 105 mmol/L (98-115); SODIUM,NA 139 mmol/L (136-145)
[2018-03-28 23:16] VITALS: BP 116/65
== END 2018-03-28 23:30 | disposition home or self-care (01) ==
LOC: SUPCPDRO 21:48 → KA.ED 21:48
DX: I47.1 Supraventricular tachycardia (principal); I10 Essential (primary) hypertension; I48.91 Unspecified atrial fibrillation; Z79.899 Other long term (current) drug therapy; Z88.8 Allergy status to other drugs, medicaments and biological substances
CPT/HCPCS: 36415; 80048; 84443; 84484; 85025; 93005; 96374; 99284; 99285; A9270-GY; J3490

== ENCOUNTER 2018-03-31 20:24 | Emergency (ER) | payer MEDICARE, BC ==
[2018-03-31] MEDS ORDERED: Sodium Chloride 0.9% 1,000 ML IV SCH (20:40)
[2018-03-31] MEDS ORDERED: Omeprazole 20 MG Cap.CR PO STA (21:00)
[2018-03-31] MEDS ORDERED: Sotalol 80 MG Tab PO STA (21:00)
[2018-03-31] MEDS ORDERED: Apixaban 5 MG Tab PO ONE (21:00)
[2018-03-31] MEDS ORDERED: Metoprolol Tartrate 50 MG Tab ONE (21:03)
[2018-03-31] MEDS ORDERED: Metoprolol Tartrate 25 MG Tab PO ONE (21:05)
[2018-03-31] MEDS ORDERED: Metoprolol Tartrate 5 MG/5 ML SDV ONE (21:18)
[2018-03-31] MEDS ORDERED: Metoprolol Tartrate 5 MG/5 ML SDV IVPUSH ONE (21:25)
[2018-03-31 21:26] LABS: CHLORIDE,CL 109 mmol/L (98-115); SODIUM,NA 142 mmol/L (136-145)
--- NOTE | 2018-03-31 21:54 | EDM.PDOC ---
ED HPI GENERAL MEDICAL PROBLEM - General Chief Complaint: Chest Pain Stated Complaint: chest pain Time Seen by Provider: 03/31/18 20:25 Source of Information: Reports: Patient, EMS, Old Records History Limitations: Reports: No Limitations - History of Present Illness INITIAL COMMENTS - FREE TEXT/NARRATIVE: 73-year-old female is brought in by EMS with SVT. Patient reports that the onset began at 7 PM this evening. She tried sitting back down and resting without improvement for 45 minutes. Upon arrival of EMS her rate was in the 160s to 170s. In route she was given adenosine 6 mg followed by an additional 12 mg. Her rate did improve to about 100. She was feeling much better. Initially she was having some chest pain and discomfort. She reports that this has since improved with the decrease of her heart rate. She is been comfortable , she denies any shortness of breath, she denies any headache. She has not had any nausea or vomiting. She was seen 3 days ago and emergency room with a similar episode and cardiology was consulted. She was given in the ER 10 mg IV metoprolol and started on 50 mg metoprolol twice a day. She is currently on sotalol 120mg BID. She's had recent ablation and cardioversion earlier this week. She had her TSH checked at her last visit and was normal. Onset: Today Onset Date: 03/31/18 Onset Time: 19:00 Duration: Minutes:, Recurring Location: Reports: Chest Quality: Reports: Ache Severity: Moderate Improves with: Reports: Medication Worsens with: Reports: Movement Associated Symptoms: Reports: Chest Pain. 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: Other Medication(s) (Adenosine 6 mg, 12 mg given in route) - Related Data Allergies Allergy/AdvReac Type Severity Reaction Status Date / Time mycophenolate mofetil Allergy Rash Verified 03/28/18 22:01 [From CellCept] Home Meds: Home Meds azaTHIOprine [Imuran] 150 mg PO DAILY 08/27/17 [History] Omeprazole 40 mg PO BID 11/01/17 [History] Apixaban [Eliquis] 5 mg PO BID #0 tablet 11/02/17 [Rx] Sotalol HCl [Sotalol] 120 mg PO BID 02/16/18 [History] Calcium Carbonate/Vitamin D3 [Os-Eddie 500+D] 1 tab PO BID 03/24/18 [History] Past Medical History HEENT History: Reports: Cataract, Hard of Hearing, Impaired Vision Cardiovascular History: Reports: Afib, Hypertension, Other (See Below) Other Cardiovascular History: new onset of a-fib Respiratory History: Reports: None Gastrointestinal History: Reports: GERD, Hiatal Hernia Other Gastrointestinal History: liver transplant (due to meds Genitourinary History: Reports: Urinary Incontinence 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: Musculoskeletal History: Reports: Arthritis, Back Pain, Chronic Neurological History: Reports: None, Other (See Below) Other Neuro History: numbness to L calf and ankle Psychiatric History: Reports: None Endocrine/Metabolic History: Reports: None Hematologic History: Reports: B12 Deficiency, Blood Transfusion(s), Other (See Below) Other Hematologic History: new dx for B 12 deficiency Immunologic History: Reports: Solid Organ Transplant Other Immunologic History: liver transplant Oncologic (Cancer) History: Reports: None Dermatologic History: Reports: None - Infectious Disease History Infectious Disease History: Reports: Chicken Pox, Measles, Mumps, Shingles - Past Surgical History HEENT Surgical History: Reports: Adenoidectomy, Cataract Surgery, Myringotomy w Tube(s), Tonsillectomy Cardiovascular Surgical History: Reports: None Respiratory Surgical History: Reports: None GI Surgical History: Reports: Appendectomy, Cholecystectomy, Colonoscopy, Other (See Below) Other GI Surgeries/Procedures: liver transplant Female Surgical History: Reports: Hysterectomy, Salpingo-Oophorectomy Endocrine Surgical History: Reports: None Neurological Surgical History: Reports: None Musculoskeletal Surgical History: Reports: Knee Replacement Dermatological Surgical History: Reports: None Social & Family History - Family History HEENT: Reports: None Cardiac: Reports: None, Hypertension Respiratory: Reports: None GI: Reports: None : Reports: None OBGYN: Reports: None Musculoskeletal: Reports: None Neurological: Reports: None Psychiatric: Reports: None Endocrine/Metabolic: Reports: None Hematologic: Reports: None Immunologic: Reports: None Dermatologic: Reports: None Oncologic: Reports: None - Caffeine Use Caffeine Use: Reports: Coffee, Tea ED ROS GENERAL - Review of Systems Review Of Systems: See Below Constitutional: Denies: Diaphoresis HEENT: Reports: No Symptoms Respiratory: Denies: Shortness of Breath Cardiovascular: Reports: Chest Pain, Palpitations. Denies: Claudication, Syncope Endocrine: Reports: No Symptoms GI/Abdominal: Reports: No Symptoms : Reports: No Symptoms Musculoskeletal: Reports: No Symptoms Skin: Reports: No Symptoms Neurological: Denies: Confusion, Dizziness, Headache, Syncope, Trouble Speaking , Change in Speech Psychiatric: Reports: No Symptoms Hematologic/Lymphatic: Reports: No Symptoms Immunologic: Reports: No Symptoms ED EXAM, GENERAL - Physical Exam Exam: See Below Exam Limited By: No Limitations General Appearance: Alert, WD/WN, Mild Distress Eye Exam: Bilateral Eye: EOMI, PERRL Ears: Normal External Exam, Hearing Grossly Normal Nose: Normal Inspection Throat/Mouth: Normal Inspection, Normal Oropharynx, Normal Voice, No Airway Compromise Head: Atraumatic, Normocephalic Neck: Normal Inspection, Supple, Non-Tender, Full Range of Motion. No: Carotid Bruit, Lymphadenopathy (L), Lymphadenopathy (R), Tender Midline, Thyromegaly Respiratory/Chest: No Respiratory Distress, Lungs Clear Cardiovascular: No JVD, Tachycardia Peripheral Pulses: 2+: Carotid (L), Carotid (R), Radial (L), Radial (R) GI/Abdominal: Soft, Non-Tender Back Exam: Normal Inspection Extremities: Normal Inspection, No Pedal Edema Neurological: Alert, Oriented, Normal Cognition, No Motor/Sensory Deficits Psychiatric: Normal Affect, Normal Mood Skin Exam: Warm, Dry, Intact, Normal Color, No Rash EKG INTERPRETATION EKG Date: 03/31/18 Time: 20:46 Rhythm: Other (tachycardic) Rate (Beats/Min): 108 [place]: Normal P-Wave: Present ST-T: Other (nonspecific) QT: Normal EKG Interpretation Comments: 1. Undetermined rhythm 2. Nonspecific ST abnormality 3. Abnormal ECG Course - Orders/Labs/Meds Orders: Active Orders 24 hr Category Date Time Status EKG Documentation Completion [RC] ASDIRECTED Care 03/31/18 20:47 Active EKG 12 Lead [EK] Routine Ther 03/31/18 20:46 Ordered Labs: Laboratory Tests 03/31/18 03/31/18 03/31/18 Range/Units 20:55 20:55 20:55 WBC 4.4 L (5.0-10.0) 10^3/uL RBC 3.71 L (3.80-5.50) 10^6/uL Hgb 12.6 (12.0-16.0) g/dL Hct 37.6 (37.0-47.0) % MCV 101.4 H (82.0-92.0) fL MCH 33.9 H (27.0-31.0) pg MCHC 33.4 (32.0-36.0) g/dL RDW 14.8 H (11.5-14.5) % Plt Count 230 (150-300) 10^3/uL MPV 7.3 L (7.4-10.4) fL Neut % (Auto) 57.0 (50.0-70.0) % Lymph % (Auto) 26.3 (20.0-40.0) % [place] % (Auto) 13.1 H (2.0-8.0) % Eos % (Auto) 2.8 (1.0-3.0) % Baso % (Auto) 0.8 (0.0-1.0) % Neut # (Auto) 2.5 (2.5-7.0) 10^3/uL Lymph # (Auto) 1.2 (1.0-4.0) 10^3/uL [place] # (Auto) 0.6 (0.1-0.8) 10^3/uL Eos # (Auto) 0.1 (0.1-0.3) 10^3/uL Baso # (Auto) 0.0 (0.0-0.1) 10^3/uL APTT 26.0 (20.8-31.2) SEC Sodium 142 (136-145) mmol/L Potassium 4.3 (3.3-5.3) mmol/L Chloride 109 (98-115) mmol/L Carbon Dioxide 23.9 (21.0-32.0) mmol/L BUN 21 (6-25) mg/dL Creatinine 0.70 (0.51-1.17) mg/dL Est Cr Clr Drug Dosing TNP Estimated GFR (MDRD) > 60 mL/min Glucose 115 H (70-110) mg/dL Calcium 8.9 (8.7-10.3) mg/dL Troponin I < 0.04 (0.00-0.070) ng/mL Meds: Medications Discontinued Medications Generic Name Dose Route Start Last Admin Trade Name Freq PRN Reason Stop Dose Admin Metoprolol Tartrate Confirm 03/31/18 21:03 Lopressor Administered 03/31/18 21:04 Dose 50 mg .ROUTE .STK-MED ONE Metoprolol Tartrate Confirm 03/31/18 21:18 Lopressor Administered 03/31/18 21:19 Dose 10 mg .ROUTE .STK-MED ONE Departure - Departure Time of Disposition: 22:45 Disposition: DC/Tfer to [facility] Reason for Transfer *Q: Other Condition: Fair Clinical Impression: SVT (supraventricular tachycardia) Instructions: Supraventricular Tachycardia, Adult Referrals: Yamilex Dai PA-C [Primary Care Provider] - Forms: ED Department Discharge - Problem List Review Problem List Initiated/Reviewed/Updated: Yes - My Orders Last 24 Hours: My Active Orders 03/31/18 20:46 EKG 12 Lead [EK] Routine 03/31/18 20:47 EKG Documentation Completion [RC] ASDIRECTED - Assessment/Plan Last 24 Hours: My Active Orders 03/31/18 20:46 EKG 12 Lead [EK] Routine 03/31/18 20:47 EKG Documentation Completion [RC] ASDIRECTED Assessment:: Supraventricular tachycardia History of atrial fibrillation with RVR Plan: Ms. Treadwell is had recurrence of her tachycardia. This time she was in SVT. She has been in atrial fibrillation with RVR. She's had cardiology consultation and has had prior an abrasion and cardioversion. She was seen 3 days ago in the emergency room and started on metoprolol 50 mg twice a day in addition to her current medications which include Sotalol 120mg bid. I've made a consultation with the hospitalist at [facility] and they accepted the patient for transfer with cardiology consult. Will send her by EMS ground ambulance to [place] this evening.
[2018-03-31] MEDS ORDERED: Sodium Chloride 0.9% 1,000 ML ONE (23:34)
== END 2018-03-31 22:40 ==
LOC: KA.ED 20:24
DX: I47.1 Supraventricular tachycardia (principal); I48.91 Unspecified atrial fibrillation; I10 Essential (primary) hypertension; K21.9 Gastro-esophageal reflux disease without esophagitis; Z88.8 Allergy status to other drugs, medicaments and biological substances; Z79.899 Other long term (current) drug therapy; Z79.01 Long term (current) use of anticoagulants
CPT/HCPCS: 36415; 80048; 84484; 85025; 85730; 93005; 96361; 96374; 99284; 99285; A9270-GY; J3490; J7030

== ENCOUNTER 2019-06-25 01:25 | Inpatient (IN) | payer MEDICARE, BC ==
[2019-06-25] MEDS ORDERED: Nitroglycerin 0.4 MG Tab.SL ONE (02:05)
--- NOTE | 2019-06-25 02:23 | EDM.PDOC ---
ED HPI GENERAL MEDICAL PROBLEM - General Stated Complaint: chest pain Time Seen by Provider: 06/25/19 01:30 Source of Information: Reports: Patient History Limitations: Reports: No Limitations - History of Present Illness INITIAL COMMENTS - FREE TEXT/NARRATIVE: Patient presents with achy left chest pain 5/10 that started 2300 (3 hours ago) while she was sitting at home. She checked and her BP was high too. She has never had any heart problems except A Fib which was ablated 14 months ago in [place]. She does have reflux and heartburn issues that she takes meds for. She was given aspirin and one nitro in ambulance; her pain was 5/10 and is now 2/10. Left Anterior Chest Pain Score (Numeric/FACES): 3 - Related Data Allergies Allergy/AdvReac Type Severity Reaction Status Date / Time mycophenolate mofetil Allergy Rash Verified 08/13/18 11:31 [From CellCept] Home Meds: Home Meds azaTHIOprine [Imuran] 150 mg PO DAILY 08/27/17 [History] Omeprazole 40 mg PO BID 11/01/17 [History] Apixaban [Eliquis] 5 mg PO BID #0 tablet 11/02/17 [Rx] Sotalol HCl [Sotalol] 120 mg PO BID 02/16/18 [History] Calcium Carbonate/Vitamin D3 [Os-Eddie 500+D] 1 tab PO BID 03/24/18 [History] Metoprolol Tartrate 25 mg PO BID 04/01/18 [History] Past Medical History HEENT History: Reports: Cataract, Hard of Hearing, Impaired Vision Cardiovascular History: Reports: Afib, Hypertension, Other (See Below) Other Cardiovascular History: new onset of a-fib Respiratory History: Reports: None Gastrointestinal History: Reports: GERD, Hiatal Hernia Other Gastrointestinal History: liver transplant (due to meds Genitourinary History: Reports: Urinary Incontinence 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: Musculoskeletal History: Reports: Arthritis, Back Pain, Chronic Neurological History: Reports: None, Other (See Below) Other Neuro History: numbness to L calf and ankle Psychiatric History: Reports: None Endocrine/Metabolic History: Reports: None Hematologic History: Reports: B12 Deficiency, Blood Transfusion(s), Other (See Below) Other Hematologic History: new dx for B 12 deficiency Immunologic History: Reports: Solid Organ Transplant Other Immunologic History: liver transplant Oncologic (Cancer) History: Reports: None Dermatologic History: Reports: None - Infectious Disease History Infectious Disease History: Reports: Chicken Pox, Measles, Mumps, Shingles - Past Surgical History HEENT Surgical History: Reports: Adenoidectomy, Cataract Surgery, Myringotomy w Tube(s), Tonsillectomy Cardiovascular Surgical History: Reports: None Respiratory Surgical History: Reports: None GI Surgical History: Reports: Appendectomy, Cholecystectomy, Colonoscopy, Other (See Below) Other GI Surgeries/Procedures: liver transplant Female Surgical History: Reports: Hysterectomy, Salpingo-Oophorectomy Endocrine Surgical History: Reports: None Neurological Surgical History: Reports: None Musculoskeletal Surgical History: Reports: Knee Replacement Dermatological Surgical History: Reports: None Social & Family History - Family History HEENT: Reports: None Cardiac: Reports: None, Hypertension Respiratory: Reports: None GI: Reports: None : Reports: None OBGYN: Reports: None Musculoskeletal: Reports: None Neurological: Reports: None Psychiatric: Reports: None Endocrine/Metabolic: Reports: None Hematologic: Reports: None Immunologic: Reports: None Dermatologic: Reports: None Oncologic: Reports: None - Caffeine Use Caffeine Use: Reports: Coffee, Tea Other Caffeine Use: Reports 2 cups daily ED ROS GENERAL - Review of Systems Review Of Systems: See Below Constitutional: Denies: Fever, Chills, Malaise, Weakness HEENT: Reports: No Symptoms Respiratory: Denies: Shortness of Breath, Cough Cardiovascular: Reports: Chest Pain, Blood Pressure Problem, Palpitations. Denies: Syncope Endocrine: Reports: No Symptoms GI/Abdominal: Denies: Abdominal Pain, Vomiting : Denies: Dysuria, Flank Pain Musculoskeletal: Reports: No Symptoms Skin: Reports: Diaphoresis (once in awhile). Denies: Cyanosis, Jaundice, Mottled, Pallor Neurological: Denies: Confusion, Dizziness, Seizure, Syncope, Trouble Speaking, Difficulty Walking Psychiatric: Denies: Agitation, Anxiety, Confusion ED EXAM, GENERAL - Physical Exam Exam: See Below Exam Limited By: No Limitations General Appearance: Alert, WD/WN, No Apparent Distress Eye Exam: Bilateral Eye: EOMI, Normal Inspection, PERRL Ears: Normal External Exam, Hearing Grossly Normal Nose: Normal Inspection, No Blood Throat/Mouth: Normal Inspection, Normal Lips, Normal Voice, No Airway Compromise Head: Atraumatic, Normocephalic Neck: Normal Inspection, Full Range of Motion Respiratory/Chest: No Respiratory Distress, Lungs Clear, Normal Breath Sounds, No Accessory Muscle Use, Other (chest is tender to palpation on the left only that somewhat reproduces her symptoms but feels sharper ) Cardiovascular: Normal Peripheral Pulses, Regular Rate, Rhythm, No Murmur GI/Abdominal: Normal Bowel Sounds, Soft, Non-Tender, No Organomegaly, No Distention, No Abnormal Bruit Back Exam: Normal Inspection, Full Range of Motion. No: CVA Tenderness (L), CVA Tenderness (R) Extremities: Normal Inspection, Normal Range of Motion Neurological: Alert, Oriented, Normal Cognition, No Motor/Sensory Deficits Psychiatric: Normal Affect, Normal Mood Skin Exam: Warm, Dry, Intact, Normal Color, No Rash Course - Vital Signs Last Recorded V/S: Last Vital Signs Temp 97.2 F 06/25/19 01:40 Pulse 89 06/25/19 03:25 Resp 18 06/25/19 03:25 BP 145/82 H 06/25/19 03:25 Pulse Ox 96 06/25/19 03:25 - Orders/Labs/Meds Orders: Active Orders 24 hr Category Date Time Status EKG Documentation Completion [RC] ASDIRECTED Care 06/25/19 01:51 Active Chest 1V Frontal [CR] Stat Exams 06/25/19 01:50 Taken EKG 12 Lead [EK] Stat Ther 06/25/19 01:51 Ordered Labs: Laboratory Tests 06/25/19 06/25/19 Range/Units 02:05 02:25 WBC 5.02 (5.00-10.00) 10^3/uL RBC 4.30 (3.80-5.50) 10^6/uL Hgb 14.1 (12.0-16.0) g/dL Hct 41.4 (37.0-47.0) % MCV 96.3 H D (82.0-92.0) fL MCH 32.8 H (27.0-31.0) pg MCHC 34.1 (32.0-36.0) g/dL RDW 14.5 (11.5-14.5) % Plt Count 220 (150-400) 10^3/uL MPV 10.0 (7.4-10.4) fL Immature Gran % (Auto) 0.4 (0.0-5.0) % Neut % (Auto) 50.4 (50.0-70.0) % Lymph % (Auto) 32.7 (20.0-40.0) % Waller % (Auto) 13.3 H (2.0-8.0) % Eos % (Auto) 2.8 (1.0-3.0) % Baso % (Auto) 0.4 (0.0-1.0) % Immature Gran # (Auto) 0.02 (0.00-0.50) 10^3/uL Neut # (Auto) 2.53 (2.50-7.00) 10^3/uL Lymph # (Auto) 1.64 (1.00-4.00) 10^3/uL Waller # (Auto) 0.67 (0.10-0.80) 10^3/uL Eos # (Auto) 0.14 (0.10-0.30) 10^3/uL Baso # (Auto) 0.02 (0.00-0.10) 10^3/uL Sodium 142 (136-145) mmol/L Potassium 4.2 (3.3-5.3) mmol/L Chloride 106 (98-115) mmol/L Carbon Dioxide 25.0 (21.0-32.0) mmol/L Anion Gap 15.2 H (5-15) mmol/L BUN 17 (6-25) mg/dL Creatinine 0.61 (0.51-1.17) mg/dL Est Cr Clr Drug Dosing 59.21 mL/min Estimated GFR (MDRD) > 60 mL/min Glucose 120 H (75 - 99) mg/dL Calcium 9.5 (8.7-10.3) mg/dL Total Bilirubin 0.4 (0.2-1.0) mg/dL AST 29 (15-37) U/L ALT 23 (12-78) U/L Alkaline Phosphatase 245 H (46-116) IU/L Troponin I 0.04 (0.00-0.070) ng/mL Total Protein 7.5 (6.4-8.2) g/dL Albumin 3.61 (3.00-4.80) g/dL Lipase 145 (73-393) U/L Meds: Medications Discontinued Medications Generic Name Dose Route Start Last Admin Trade Name Freq PRN Reason Stop Dose Admin Al Hydroxide/Mg Hydroxide 45 ml 06/25/19 03:15 06/25/19 03:21 Gi Cocktail PO 06/25/19 03:16 45 ml ONETIME ONE Administration Nitroglycerin Confirm 06/25/19 02:05 06/25/19 02:06 Nitrostat Administered 06/25/19 02:06 0.4 mg Dose Administration 0.4 mg .ROUTE .STK-MED ONE Nitroglycerin 0.4 mg 06/25/19 02:36 06/25/19 02:23 Nitrostat SL 06/25/19 02:37 0.4 mg ONETIME ONE Administration - Re-Assessments/Exams Free Text/Narrative Re-Assessment/Exam: 06/25/19 03:42 Trop is negative. CXR is okay. Labs okay. Nitro x 2 were given in ER. Pt's pain fluctuates and moves around on her chest wall somewhat. Pain was up to 3 again. GI cocktail provided significant relief to the remaining chest pain. The hypertension normalized without treatment. I faxed EKGs to [facility] dean Dr. Chambers who compared with one from 2 months ago and discussed case with him. He feels the EKG is okay and patient can be observed and close follow up with PCP. Will observe and get second troponin in morning. Pt stable at admission. I discussed findings and plan with pt. Departure - Departure Time of Disposition: 03:52 Disposition: Refer to Observation Reason for Transfer *Q: Other Condition: Good Clinical Impression: Heartburn Chest pain Qualifiers: Chest pain type: unspecified Qualified Code(s): R07.9 - Chest pain, unspecified Hypertension Qualifiers: Hypertension type: unspecified Qualified Code(s): I10 - Essential (primary) hypertension - My Orders Last 24 Hours: My Active Orders 06/25/19 01:50 Chest 1V Frontal [CR] Stat 06/25/19 01:51 EKG Documentation Completion [RC] ASDIRECTED EKG 12 Lead [EK] Stat - Assessment/Plan Last 24 Hours: My Active Orders 06/25/19 01:50 Chest 1V Frontal [CR] Stat 06/25/19 01:51 EKG Documentation Completion [RC] ASDIRECTED EKG 12 Lead [EK] Stat
[2019-06-25] MEDS ORDERED: Nitroglycerin 0.4 MG Tab.SL SL ONE (02:36)
[2019-06-25 02:58] LABS: ANION GAP 15.2 mmol/L (5-15); CHLORIDE,CL 106 mmol/L (98-115); SODIUM,NA 142 mmol/L (136-145)
[2019-06-25] MEDS ORDERED: GI Cocktail 45 ML BOTTLE PO ONE ×2 (03:15→06:45)
[2019-06-25] MEDS ORDERED: Nitroglycerin 0.4 MG Tab.SL SL PRN ×2 (07:15→16:11)
[2019-06-25] MEDS ORDERED: Morphine 2 MG/ML Syringe IVPUSH PRN (07:15)
--- NOTE | 2019-06-25 08:17 | CR ---
0717-1998 RAD/RAD Chest PA or AP 1V EXAM: RAD Chest PA or AP 1V INDICATION: CHEST PAIN COMPARISON: None. DISCUSSION: Cardiomediastinal silhouette is stable in size and contour. No infiltrate, effusion, pneumothorax, or edema. Pulmonary hyperinflation. Stable nodularity within the right midlung zone. Left basilar subsegmental atelectasis and/or scarring. Mild levoscoliotic curvature of the midthoracic spine. IMPRESSION: No acute cardiopulmonary abnormality. Mauricio Rosales DO 06/25/19 0814 Thank you for allowing us to participate in the care of your patient.
[2019-06-25] MEDS ORDERED: Sotalol 80 MG Tab PO ONE (10:49)
[2019-06-25] MEDS ORDERED: cefTRIAXone 1 GM Vial IVPUSH SCH (11:30)
[2019-06-25] MEDS ORDERED: Atropine 0.1 MG/ML 10 ML Syringe IVPUSH PRN (16:11)
[2019-06-25] MEDS ORDERED: Lidocaine 2% 100 MG/5 ML Syringe IVPUSH PRN (16:11)
[2019-06-25] MEDS ORDERED: EPINEPHrine 1:10,000 1 MG/10 ML Syringe IVPUSH PRN (16:11)
[2019-06-25] MEDS ORDERED: Metoprolol Tartrate 25 MG Tab PO SCH (21:00)
[2019-06-25] MEDS: Calcium Citrate/Vitamin D3 315 MG-250 Unit Tab PO SCH (22:24)
[2019-06-25] MEDS: Omeprazole 20 MG Cap.CR PO SCH (22:25)
[2019-06-25] MEDS: Apixaban 5 MG Tab PO SCH (22:26)
[2019-06-25] MEDS: Sotalol 80 MG Tab PO SCH (22:29)
[2019-06-26] MEDS: Omeprazole 20 MG Cap.CR PO SCH ×2 (08:54→21:13)
[2019-06-26] MEDS: Apixaban 5 MG Tab PO SCH ×2 (08:55→21:13)
[2019-06-26] MEDS: Calcium Citrate/Vitamin D3 315 MG-250 Unit Tab PO SCH ×2 (08:55→21:13)
[2019-06-26] MEDS: Sotalol 80 MG Tab PO SCH ×3 (09:58→21:12)
[2019-06-26] MEDS: amLODIPine 5 MG Tab PO SCH (10:24)
[2019-06-27] MEDS: Sotalol 80 MG Tab PO SCH (08:28)
[2019-06-27] MEDS: amLODIPine 5 MG Tab PO SCH (08:28)
[2019-06-27] MEDS: Calcium Citrate/Vitamin D3 315 MG-250 Unit Tab PO SCH (08:28)
[2019-06-27] MEDS: Omeprazole 20 MG Cap.CR PO SCH (08:28)
[2019-06-27] MEDS: Apixaban 5 MG Tab PO SCH (08:29)
--- NOTE | 2019-06-27 08:57 | PCM.DCSUM1 ---
Discharge Summary - Hospital Course Free Text/Narrative:: Date of Admission: 06/25/19 Date of Discharge: 06/27/19 Admission Diagnosis: Chest pain, r/o DE Discharge Diagnoses: Chest pain, DE ruled out Cardiac pause, secondary to sotalol, dose reduced from 160 mg PO BID to 80 mg PO BID Secondary diagnoses: Atrial fibrillation Acid Reflux H/O Liver Transplant KATELYN Frazier is a delightful 74yo F who presented to the ER on 06/25/19 with chest pain for 3 hours. She has a hx of a-fib with ablation several months ago. Troponin was negative initially. She has a very unusual EKG with some sinus beats and other beats that do not appear to be conducted from the atria. This EKG was faxed to cardiology, who reviewed her previous EKG's and it was consistent with prior EKG's. She was admitted to r/o DE. She has had negative troponin x 3. On the evening of 06/25 I was called as she was having up to 8 second pauses with normal BP and normal mentation. I held her sotalol that evening and her PCP, Yamilex Dai, followed up with cardiology by phone on 06/26 and was instructed to cut her sotalol to 80 mg PO BID from 160 mg PO BID. This was done and she has had no further pauses. She feels well and is ready to go home. Diagnosis: Stroke: No Modified Edwardo Scale: No Symptoms at All Modified Edwardo Scale Score: 0 - Discharge Data Discharge Date: 06/27/19 Discharge Disposition: Home, Self-Care 01 Condition: Good - Referral to Home Health Primary Care Physician: Yamilex Dai PA-C - Discharge Diagnosis/Problem(s) (1) Liver transplanted Status: Chronic Current Visit: Yes (2) Atrial fibrillation SNOMED Code(s): 49760037 ICD Code: I48.91 - UNSPECIFIED ATRIAL FIBRILLATION Status: Acute Current Visit: No Qualifiers: Atrial fibrillation type: persistent Qualified Code(s): I48.1 - Persistent atrial fibrillation (3) Chest pain SNOMED Code(s): 90362479 ICD Code: R07.9 - CHEST PAIN, UNSPECIFIED Status: Acute Current Visit: No Qualifiers: Chest pain type: unspecified Qualified Code(s): R07.9 - Chest pain, unspecified (4) Heartburn SNOMED Code(s): 11347634 ICD Code: R12 - HEARTBURN Status: Acute Current Visit: No (5) Hypertension SNOMED Code(s): 45400132 ICD Code: I10 - ESSENTIAL (PRIMARY) HYPERTENSION Status: Acute Current Visit: No Qualifiers: Hypertension type: unspecified Qualified Code(s): I10 - Essential (primary ) hypertension - Patient Instructions Diet: Usual Diet as Tolerated Activity: Rest and Relax Today - Discharge Plan *PRESCRIPTION DRUG MONITORING PROGRAM REVIEWED*: Not Applicable *COPY OF PRESCRIPTION DRUG MONITORING REPORT IN PATIENT ERIC: Not Applicable Prescriptions/Med Rec: amLODIPine Besylate [Amlodipine Besylate] 5 mg PO DAILY #30 tablet Sotalol [Betapace] 80 mg PO BID 30 Days #60 tab Sotalol HCl [Betapace AF] 160 mg PO BID #60 tablet Home Medications: Home Meds azaTHIOprine [Imuran] 150 mg PO DAILY 08/27/17 [History] Omeprazole 40 mg PO BID 11/01/17 [History] Apixaban [Eliquis] 5 mg PO BID #0 tablet 11/02/17 [Rx] Calcium Carbonate/Vitamin D3 [Os-Eddie 500+D] 1 tab PO BID 03/24/18 [History] Sotalol HCl [Betapace AF] 160 mg PO BID #60 tablet 06/25/19 [Rx] amLODIPine Besylate [Amlodipine Besylate] 5 mg PO DAILY #30 tablet 06/25/19 [Rx] Sotalol [Betapace] 80 mg PO BID 30 Days #60 tab 06/27/19 [Rx] amLODIPine [Norvasc] 5 mg PO DAILY tablet 06/27/19 [Rx] - Discharge Summary/Plan Comment DC Time >30 min.: No - Patient Data Vitals - Most Recent: Last Vital Signs Temp 98.8 F 06/27/19 06:55 Pulse 63 06/27/19 08:28 Resp 16 06/27/19 06:55 BP 133/88 06/27/19 08:28 Pulse Ox 95 06/27/19 06:55 Weight - Most Recent: 140 lb I&O - Last 24 hours: Intake & Output 06/26/19 06/27/19 06/27/19 22:59 06:59 14:59 Intake Total 450 300 Balance 450 300 Lab Results - Last 24 hrs: Laboratory Results - last 24 hr 09/19/19 Range/Units 10:08 Troponin I 0.04 (0.00-0.070) ng/mL Med Orders - Current: Current Medications Amlodipine Besylate (Norvasc) 5 mg PO DAILY [facility] Last Admin: 06/27/19 08:28 Dose: 5 mg Apixaban (Eliquis) 5 mg PO BID [facility] Last Admin: 06/27/19 08:29 Dose: 5 mg Atropine Sulfate (Atropine 0.1 Mg/Ml) 0 mg IVPUSH ASDIRECTED PRN PRN Reason: Heart Azathioprine (Imuran) 150 mg PO DAILY [facility] Last Admin: 06/27/19 08:29 Dose: 150 mg Calcium Citrate (Calcium Citrate + D) 1 tab PO BID [facility] Last Admin: 06/27/19 08:28 Dose: 1 tab Epinephrine HCl (Epinephrine 1:10,000) 1 mg IVPUSH ASDIRECTED PRN PRN Reason: Heart Lidocaine HCl (Xylocaine 2%) 0 mg IVPUSH ASDIRECTED PRN PRN Reason: Heart Morphine Sulfate (Morphine) 1 mg IVPUSH ONETIME PRN PRN Reason: Chest Pain Nitroglycerin (Nitrostat) 0.4 mg SL Q5M PRN PRN Reason: Chest Pain Nitroglycerin (Nitrostat) 0.4 mg SL ASDIRECTED PRN PRN Reason: Heart Omeprazole (Omeprazole) 40 mg PO BID [facility] Last Admin: 06/27/19 08:28 Dose: 40 mg Sotalol HCl (Betapace) 80 mg PO BID [facility] Last Admin: 06/27/19 08:28 Dose: 80 mg Discontinued Medications Al Hydroxide/Mg Hydroxide (Gi Cocktail) 45 ml PO ONETIME ONE Stop: 06/25/19 03:16 Last Admin: 06/25/19 03:21 Dose: 45 ml Al Hydroxide/Mg Hydroxide (Gi Cocktail) 45 ml PO ONETIME ONE Stop: 06/25/19 06:46 Last Admin: 06/25/19 07:08 Dose: 45 ml Ceftriaxone Sodium (Rocephin) 1 gm IVPUSH Q24H [facility] Last Admin: 06/25/19 14:46 Dose: 1 gm Metoprolol Tartrate (Lopressor) 25 mg PO BID [facility] Nitroglycerin (Nitrostat) Confirm Administered Dose 0.4 mg .ROUTE .STK-MED ONE Stop: 06/25/19 02:06 Last Admin: 06/25/19 02:06 Dose: 0.4 mg Nitroglycerin (Nitrostat) 0.4 mg SL ONETIME ONE Stop: 06/25/19 02:37 Last Admin: 06/25/19 02:23 Dose: 0.4 mg Sotalol HCl (Betapace) 160 mg PO BID [facility] Last Admin: 06/26/19 09:58 Dose: Not Given Sotalol HCl (Betapace) 160 mg PO ONETIME ONE Stop: 06/25/19 10:50 Last Admin: 06/25/19 11:19 Dose: 160 mg
--- NOTE | 2019-06-27 14:04 | PN ---
06/26/2019 PATIENT NAME: JOANNA LOMAX SUBJECTIVE: This is a 74-year-old female who presented to the emergency room and was admitted for chest pain and rule out MS. She presented to the emergency room in the fuse cutter of 06/25/2019. She noticed that she was having left- sided chest pain. She was brought by EMS. She was given aspirin and one nitroglycerin in the ambulance. Her pain did improve. She also was treated with GI cocktail, which did improve her pain as well. Serial troponins x3 have been negative at less than 0.04 x 3. The patient reports that her chest pain is improved. The patient is status post cardiac ablation for atrial fibrillation in 03/2018. She has had two tachycardic episodes since that time. She has been on sotalol since the ablation at a dose of 160 mg b.i.d. Yesterday morning, when I evaluated the patient, her heart rate was 154 in a sinus tachycardia. She was given sotalol 160 mg x1 and resumed her 160 mg b.i.d. at home. Last evening, she had two pauses of asystole. The longest one being 8 seconds. Her evening sotalol was held at that time. This morning, she is in a sinus bradycardia with a rate of 60-64 with an occasional PVC. The patient is status post liver transplant 27 years ago. When I discussed a possible evaluation for pacemaker, she reported that she was told at one time that she could not have a pacemaker placed due to her liver transplant. She is on Imuran for the same. She is status post liver transplant and is taking Imuran 150 mg daily. She has hypertension and is taking amlodipine 5 mg p.o. daily. She has gastroesophageal reflux disease and is taking omeprazole 40 mg b.i.d. She is on Eliquis 5 mg p.o. b.i.d. for CVA prophylaxis. She has a history of atrial fibrillation status post cardiac ablation in 03/2018. She is on sotalol 160 mg p.o. b.i.d. She is also taking calcium with vitamin D as a dietary supplement. The preliminary chest x-ray report from the ER showed that the patient had mild cardiomegaly as well as bronchitis. She was given a one time dose of ceftriaxone 1 g IV yesterday. The final report on the chest x-ray did not identify the bronchitis. This ceftriaxone has since been discontinued. Other lab results from 06/25/2019, show fairly normal CBC. Chemistry profile shows a sodium of 142. Potassium 4.2. Anion gap is 15.2. BUN and creatinine are normal at 17 and 0.61 respectively with an estimated GFR of greater than 60. Alkaline phosphatase is elevated at 245. Liver function tests are normal. Lipase was normal in the emergency room as well. As previously stated, serial troponins x3 have been less than 0.04. OBJECTIVE: VITAL SIGNS: On exam, temp is 96.9, pulse 65, respirations 16, blood pressure 153/90, oxygen saturation is 94% on room air. SKIN: Warm and dry to touch. CARDIAC: Reveals S1, S2 to be normal. Rate and rhythm are regular. No murmur, click, or gallop is auscultated. LUNGS: Clear without rales, wheezes, or rhonchi. ABDOMEN: Soft, nontender. Bowel sounds present in all four quadrants. There is no pedal edema. IMPRESSION: 1. Chest pain with myocardial infarction ruled out with serial troponins less than 0.04. 2. Erratic cardiac rhythm with two asystolic pauses last evening. Her sotalol was held last night. I did consult with Cardiology through one call at [place] in . I talked to Dr. Sauceda. He recommended the patient continue to be monitored inpatient. He also recommended that her sotalol be decreased to 80 mg p.o. b.i.d. The patient agrees with the plan of care and wishes to proceed. She is back at her baseline as far as her cardiac rhythm and rate. We will monitor closely. 3. History of atrial fibrillation with cardiac ablation in 03/2018. 4. Status post liver transplant 27 years ago. We do not have Imuran or azathioprine which is her anti-rejection drugs for her liver transplant in our pharmacy. She is now missed one dose of it yesterday. We are checking to see if there is a pharmacy in town that can provide us with enough Imuran to cover the patient's hospital stay. 5. Hypertension. She will continue on amlodipine. 6. Cerebrovascular accident prophylaxis, continue Eliquis. 7. Gastroesophageal reflux disease. She will continue omeprazole 40 mg p.o. b.i.d. I have communicated all my findings to Dr. Linda Chinchilla, who concurs. /[id number]/MODL
== END 2019-06-27 11:45 | disposition home or self-care (01) | DRG 309 ==
LOC: KA.ED 01:25 → KA.MS 05:10 → OBSVTOIN 06-26 10:10
DX: I49.5 Sick sinus syndrome (principal); I49.9 Cardiac arrhythmia, unspecified; I48.91 Unspecified atrial fibrillation; I48.1 Persistent atrial fibrillation; Z86.73 Personal history of transient ischemic attack (TIA), and cerebral infarction without residual deficits; Z94.4 Liver transplant status; H91.90 Unspecified hearing loss, unspecified ear; H54.7 Unspecified visual loss; R12 Heartburn; R32 Unspecified urinary incontinence; I10 Essential (primary) hypertension; K21.9 Gastro-esophageal reflux disease without esophagitis; K44.9 Diaphragmatic hernia without obstruction or gangrene; T44.7X5A Adverse effect of beta-adrenoreceptor antagonists, initial encounter; M19.90 Unspecified osteoarthritis, unspecified site; M54.9 Dorsalgia, unspecified; G89.29 Other chronic pain; E53.8 Deficiency of other specified B group vitamins; Z79.899 Other long term (current) drug therapy; Z98.49 Cataract extraction status, unspecified eye; Z90.89 Acquired absence of other organs; Z90.49 Acquired absence of other specified parts of digestive tract; Z90.710 Acquired absence of both cervix and uterus; Z96.659 Presence of unspecified artificial knee joint; Z79.01 Long term (current) use of anticoagulants
CPT/HCPCS: 36415; 71045; 80053; 83690; 84484 ×3; 85025; 93005 ×2; 96374; 99285; A9270 ×9; G0378 ×2; J0696; 99219; J7500